=== PATIENT | male | born 1990 | race Caucasian/White ===

== ENCOUNTER 2021-12-14 08:34 | Emergency (ER) | payer BC, SELFPAY ==
[2021-12-14 08:43] VITALS: BP 141/95; PULSE 62; RESP 16; TEMP 35.8; O2SAT 98; BMI 28.1
--- NOTE | 2021-12-14 09:01 | ED_ITS ---
HPI - Skin/Abscess/Foreign Bdy General Time Seen by Provider: 08:57 Date Seen: 12/14/21 Chief complaint: Skin/Abscess/Foreign Body Stated complaint: Possible infection on Lt ankle Time Seen by Provider: 12/14/21 08:44 Source: patient, RN notes reviewed and old records reviewed Mode of arrival: ambulatory Limitations: no limitations History of Present Illness HPI narrative: Gary is a very pleasant 31-year-old male with history of psoriasis on immunosuppression, anxiety, who comes to the emergency room with concerns regarding an infection on his ankle. Gary notes that he had been camping and got multiple mosquito bites. He states that unfortunately he has been itching the bites on both ankles as well as his arms. Does admit that he is a ?pear picker?. Notes that when they do itch the intensity is pretty strong. He also notes that his left ankle is achy when he walks on it. He has not had fever but states this morning he is somewhat nauseated. He did have 2 loose stools earlier today. He denies any vomiting, injury. He does note that when he had the mosquito bites and he had scratch them he did swim in the [employer]. He has no history of MRSA. Gary is worried as he had an 8-year-old nephew of sepsis. He did not want to let this get to the septic point. MD complaint: insect bite/sting Onset (ago): day(s) Tetanus up to date: yes (States within the last 6 years.) Associated symptoms: nausea Treatments prior to arrival: none Related Data Home Medications Medication Instructions Recorded Confirmed lorazepam 2 mg tablet 2 mg PO Q12H 12/14/21 12/14/21 propranolol 20 mg tablet 20 mg BID 12/14/21 risankizumab-rzaa IV 12/14/21 venlafaxine 37.5 mg 75 mg PO DAILY 12/14/21 12/14/21 capsule,extended release 24 hr venlafaxine 75 mg capsule,extended mg PO 12/14/21 release 24 hr Allergies Allergy/AdvReac Type Severity Reaction Status Date / Time No Known Drug Allergies Allergy Verified 12/14/21 09:10 Review of Systems Const: Reports: fatigue; Denies: fever or chills Eyes: Denies: change in vision ENMT: Denies: throat pain or difficulty swallowing Cardio: Denies: chest pain or shortness of breath with exertion Resp: Denies: shortness of breath or cough GI: Denies: difficulty swallowing Integ/Breast: Reports: itching and sores Neuro: Denies: headache Psych: Reports: anxiety (Treated with lorazepam. Patient did take meds this a.m.) Endo: Reports: fatigue Sha/Lymph: Denies: easy bruising [facility] Medical History (Updated 11/25/21 @ 09:52 by Deepa Santoro) Abdominal pain Acute gastritis Acute viral pharyngitis Flank pain Lump on face Subcutaneous nodule Exam Narrative: Exam Narrative: Past medical history: Reviewed Social history: Patient does drink alcohol 2 to 3 times a week. Does not feel that he has any withdrawal symptoms or that it is a problem. Smokes cigarettes 1 pack daily-advised to quit Const: Vital Signs, click to edit/add: Vital Signs - 24 hr 12/14/21 08:43 Temperature 96.5 F L Pulse Rate [Pulse Oximeter] 62 Respiratory Rate 16 Blood Pressure [Le ft Upper Arm] 141/95 H Pulse Oximetry 98 Oxygen Delivery Me thod Room Air Documenting provider has reviewed patient's vital signs: yes Common normals: no apparent distress, average body habitus, oriented x3, no limitations, healthy appearing, alert and well nourished General appearance: cooperative, comfortable and well kempt HENMT: Common normals: normocephalic, head/scalp atraumatic and external ears normal Head and scalp: normocephalic and atraumatic Face and sinus: normal facial exam External ear: external ears normal Mouth: oral and palatal mucosa normal and tongue normal Throat: posterior oropharynx normal Eye: Common normals: PERRL General eye: normal appearance of both eyes Pupil: PERRL Neck & C-Spine: Common normals: full ROM, no lymphadenopathy and supple Resp: Common normals: normal respiratory effort and clear to auscultation bilaterally Effort & inspection: able to speak in complete sentences Auscultation: clear to auscultation bilaterally Cardio: Common normals: regular rate and regular rhythm Rate: regular rate Rhythm: regular rhythm GI: Common normals: soft to palpation and non-tender Palpation: soft Extremity: Other: Bilateral ankle scabbing. On the left scabbing over lateral malleolus also shows some weeping. Neuro: Common normals: oriented x3 Sensorium/orientation: alert Speech: speech normal Gait (neuro): normal gait Psych: Common normals: mental status grossly normal, thought process normal, cooperative, affect normal, speech normal and activity/motor behavior normal Appearance: well kempt Speech: normal speech Thought process: normal thought process Skin: Narrative: Areas of scabbing measuring 3-6 mm noted on the extensor and dorsal areas of forearms right greater than left. On the ankles areas of scabbing noted on the right ankle without surrounding edema. Left ankle, lateral malleolus, however shows area of weeping with wound measuring approximately 2 x 1 cm. There is an area of erythema around this that is tender to the touch. No significant edema. Area of erythema limited to periphery of the wound at this time. Not excessively warm to the touch. Wound culture accomplished Course Course Hospital Course: At this time, differential diagnosis does include cellulitis, scabbing/insect bite reaction. Patient assures me that he did not have any psoriatic plaques in this area and that indeed there was a mosquito bite which she scratched. He has no history of MRSA and he states his tetanus is up-to-date within the last 6 years. At this time recommend antibiotic treatment and will also obtain culture. Vital Signs Vital signs: Initial Vital Signs Temperature 96.5 F L 12/14/21 08:43 Temperature Source Temporal Artery Scan 12/14/21 08:43 Pulse Rate 62 12/14/21 08:43 Pulse Rhythm 12/14/21 08:43 Respiratory Rate 16 12/14/21 08:43 Blood Pressure 141/95 H 12/14/21 08:43 Blood Pressure Mean 110 12/14/21 08:43 Pulse Oximetry 98 12/14/21 08:43 Oxygen Delivery Method 12/14/21 08:43 Vital Signs Temperature 96.5 F L 12/14/21 08:43 Pulse Rate 62 12/14/21 08:43 Respiratory Rate 16 12/14/21 08:43 Blood Pressure 141/95 H 12/14/21 08:43 Pulse Oximetry 98 12/14/21 08:43 Oxygen Delivery Method 12/14/21 08:43 Temperature 96.5 F L 12/14/21 08:43 Pulse Rate 62 12/14/21 08:43 Respiratory Rate 16 12/14/21 08:43 Blood Pressure 141/95 H 12/14/21 08:43 Pulse Oximetry 98 12/14/21 08:43 Oxygen Delivery Method 12/14/21 08:43 MDM - Skin/Abscess/Foreign Bdy MDM Narrative Medical decision making narrative: 1. Early cellulitis-patient noted to have scabbing with some weeping on left lateral ankle that is somewhat different from the other scabbing on his ankles in arms. No fever at this time. He is not tachycardic but does take a beta- mauricio. At this time recommend treatment with Keflex. Will start with a 1000 mg and then patient may convert to 500 mg p.o. t.i.d. for 7 days. He is requesting Inst[facility] Meds. First dose will be given in the ED. 2. Nausea-patient did have 2 stools but they were regular. No alcohol use last night. He did have COVID a few months ago and does not have sore throat runny nose at this time. Continue to monitor. I do not feel that the symptoms represent sepsis. I would be more concerned about COVID but again, patient did have COVID a few months ago. He has worsening symptoms he will need to be tested. 2. Disposition-patient will be discharged home. He may shower but I would advise against soaking his wound this time. He is aware that he may not have concern will improvement in the 1st 36 hours but he should not have worsening symptoms. He should return for fever, vomiting, worsening symptoms and as needed. Medical Records Attestation: I reviewed the patient's medical records. Discharge Plan Discharge Follow Up/Referrals: Provider,Not a Local [Primary Care Provider] -
[2021-12-14] MEDS: cephALEXin 500 MG CAPSULE 1000 MG PO (09:20)
== END 2021-12-14 09:35 | disposition home or self-care (01) ==
PROVIDERS: Emergency Provider Family Medicine
DX: L03.116 Cellulitis of left lower limb (principal); R11.0 Nausea
CPT/HCPCS: 87070; 99283; 99284; A9270

== ENCOUNTER 2022-01-01 13:06 | Emergency (ER) | payer BC, SELFPAY ==
[2022-01-01 13:25] VITALS: BP 138/85; PULSE 63; RESP 18; TEMP 36.5; O2SAT 97; BMI 28.2
--- NOTE | 2022-01-01 13:35 | ED.GENADULT ---
HPI - General Adult General Chief complaint: Unspecified Complaint, Adult Stated complaint: Bumps along forearms/sides Time Seen by Provider: 01/01/22 13:32 Source: patient Mode of arrival: ambulatory Limitations: no limitations History of Present Illness HPI narrative: 31-year-old male coming in today concerned about a new onset rash that he noticed this morning. They are raised firm lesions 1 on each arm, 1 on his flank, 1 on his leg that are itchy. He states that he stayed in a new house yesterday, his friend's house, and their child also woke up with similar lesions. He denies any systemic symptoms or recent travel. Lesions are very pruritic. Related Data Home Medications Medication Instructions Recorded Confirmed lorazepam 2 mg tablet 2 mg PO Q12H 12/14/21 12/14/21 propranolol 20 mg tablet 20 mg BID 12/14/21 risankizumab-rzaa IV 12/14/21 venlafaxine 37.5 mg 75 mg PO DAILY 12/14/21 12/14/21 capsule,extended release 24 hr venlafaxine 75 mg capsule,extended mg PO 12/14/21 release 24 hr Previous Rx's Medication Instructions Recorded risankizumab-rzaa 150 mg/mL 150 mg subcut Q12W #1 mL 12/24/21 subcutaneous syringe (Skyrizi) Allergies Allergy/AdvReac Type Severity Reaction Status Date / Time No Known Drug Allergies Allergy Verified 12/14/21 09:10 Review of Systems Status of ROS: Reports: 10 or more systems reviewed and unremarkable except as noted in History and below [facility] Medical History Abdominal pain Acute gastritis Acute viral pharyngitis Flank pain Lump on face Subcutaneous nodule Social History Smoking Status: Current every day smoker What tobacco products do you use: cigarettes Do you use any of these nicotine containing products: None Second hand tobacco smoke exposure: No How often do you have a drink containing alcohol: 2-3 times a week How many standard drinks containing alcohol do you have on a typical day: 3 or 4 How often do you have six or more drinks on one occasion: Weekly AUDIT-C Alcohol total score: 7 Non-prescribed substance use: denies use service: No Exam Narrative: Exam Narrative: Well-nourished well-developed patient in no acute distress although is a bit anxious. Alert and oriented. Answers questions appropriately. Mood and affect are appropriate. Thoughts are goal oriented and rational. No tangential or magical thinking noted. Patient speaks in full sentences without needing to catch his breath. HEENT: Normocephalic atraumatic. Pupils are equally round reactive to light. Extraocular muscles are intact. Conjunctivae are moist without any icterus noted. Extremities: Bilateral lower extremities are without edema. Normal DP and PT pulses. Several tattoos. Skin: Well perfused, dry and intact. Patient has elevated, firm macules-1 on each arm, 1 is flank and 1 on his leg. Appear very consistent with insect bites. Const: Vital Signs, click to edit/add: Vital Signs - 24 hr 01/01/22 13:25 Temperature 97.7 F Pulse Rate [Right Pulse Oximeter] 63 Respiratory Rate 18 Blood Pressure [Ri ght Upper Arm] 138/85 Pulse Oximetry 97 Oxygen Delivery Me thod Room Air Course Vital Signs Vital signs: Initial Vital Signs Temperature 97.7 F 01/01/22 13:25 Temperature Source Temporal Artery Scan 01/01/22 13:25 Pulse Rate 63 01/01/22 13:25 Respiratory Rate 18 01/01/22 13:25 Blood Pressure 138/85 01/01/22 13:25 Blood Pressure Mean 102 01/01/22 13:25 Pulse Oximetry 97 01/01/22 13:25 Oxygen Delivery Method 01/01/22 13:25 Vital Signs Temperature 97.7 F 01/01/22 13:25 Pulse Rate 63 01/01/22 13:25 Respiratory Rate 18 01/01/22 13:25 Blood Pressure 138/85 01/01/22 13:25 Pulse Oximetry 97 01/01/22 13:25 Oxygen Delivery Method 01/01/22 13:25 Temperature 97.7 F 01/01/22 13:25 Pulse Rate 63 01/01/22 13:25 Respiratory Rate 18 01/01/22 13:25 Blood Pressure 138/85 01/01/22 13:25 Pulse Oximetry 97 01/01/22 13:25 Oxygen Delivery Method 01/01/22 13:25 Medical Decision Making MDM Narrative Medical decision making narrative: 31-year-old male with what appears to be insect bites. We discussed symptomatic treatment with Benadryl, hydrocortisone. We discussed changing his sleeping arrangements. We also discussed cleaning the environment with putting the laundry in hot water and then in the hot sizing machine and drier operator. Patient was agreeable had no other questions. Discharge Plan Discharge Clinical Impression: Insect bite Patient Disposition: Home, Self-Care Condition: Stable Additional Instructions: You can try oral Benadryl, 25 mg every 6 hours as needed. He can also try [id number] cortisone cream. These will heal in a few days. Prescriptions: No Action venlafaxine 37.5 mg capsule,extended release 24hr 75 mg PO DAILY Label Comments: TAKE 1 CAPSULE BY MOUTH DAILY WITH FOOD venlafaxine 75 mg capsule,extended release 24hr PO lorazepam 2 mg tablet 2 mg PO Q12H Label Comments: TAKE ONE-HALF TABLET BY MOUTH THREE TIMES DAILY AND 1/4 TWICE DAILY NEEDED propranolol 20 mg tablet 20 mg BID Label Comments: TAKE 2 TABLETS BY MOUTH EVERY MORNING AND 1 LATER IN DAY risankizumab-rzaa [Skyrizi] IV Label Comments: SQ every three months Skyrizi 150 mg/mL syringe 150 mg subcut Q12W Qty: 1 0RF Follow Up/Referrals: Provider,Not a Local [Primary Care Provider] - Stand Alone Forms: [facility] Info Instructions
--- NOTE | 2022-01-01 14:03 | ED.NURSE ---
Pt left ER prior to DC instructions being given.
== END 2022-01-01 14:03 | disposition home or self-care (01) ==
PROVIDERS: Emergency Provider Family Medicine
DX: S40.862A Insect bite (nonvenomous) of left upper arm, initial encounter (principal); S40.861A Insect bite (nonvenomous) of right upper arm, initial encounter; S30.861A Insect bite (nonvenomous) of abdominal wall, initial encounter; W57.XXXA Bitten or stung by nonvenomous insect and other nonvenomous arthropods, initial encounter; Y93.84 Activity, sleeping; Y92.013 Bedroom of single-family (private) house as the place of occurrence of the external cause; Y99.8 Other external cause status
CPT/HCPCS: 99282; 99283

== ENCOUNTER 2022-01-24 05:59 | Emergency (ER) | payer BC, SELFPAY ==
[2022-01-24 06:05] VITALS: BP 147/101; PULSE 90; RESP 16; TEMP 36.8; O2SAT 94; BMI 26.6
--- NOTE | 2022-01-24 06:24 | ED.SOB ---
HPI - SOB/Dyspnea General Chief Complaint: Shortness of Breath/Dyspnea Stated Complaint: Congestion, cough, fever Time Seen by Provider: 01/24/22 06:16 History of Present Illness HPI Narrative: 31-year-old man presenting to the emergency department with complaint of low sternal chest pain and coughing. Has been coughing with some head cold symptoms over the last 4-5 days. Has not measured a fever but says been burning up. If I the surprising that he does not have a fever here today, noting how hot his back was to palpation by his . Ears are cracking as well and popping. Is having some left flank area pain now. No dysuria frequency or urgency. No hematuria noted. Was seen at Urgent Care 2 days ago. This he was advised not to take ?Sudafed? as would dry him out. He has been trying guaifenesin. Was initiated on doxycycline 2 days ago. Sounds as though he had x-rays done. His hurts in the same flank area. I don't know what that's about?. Was told to follow up in 2 days of was improved. He says he feels worse than when he had COVID in May approximately this year. He has been vaccinated twice. Related Data Home Medications Medication Instructions Recorded Confirmed lorazepam 2 mg tablet 2 mg PO Q12H 12/14/21 01/24/22 propranolol 20 mg tablet 20 mg PO BID 12/14/21 01/24/22 venlafaxine 75 mg capsule,extended 75 mg PO DAILY 12/14/21 01/24/22 release 24 hr Robitussin with tylenol 01/24/22 cholecalciferol (vitamin D3) 50 01/24/22 mcg (2,000 unit) capsule (Vitamin D3) ibuprofen 600 mg 01/24/22 Previous Rx's Medication Instructions Recorded risankizumab-rzaa 150 mg/mL 150 mg subcut Q12W #1 mL 12/24/21 subcutaneous syringe (Skyrizi) Allergies Allergy/AdvReac Type Severity Reaction Status Date / Time No Known Drug Allergies Allergy Verified 01/24/22 06:08 [facility] Medical History Abdominal pain Acute gastritis Acute viral pharyngitis Flank pain Lump on face Subcutaneous nodule Social History Smoking Status: Current every day smoker What tobacco products do you use: cigarettes Do you use any of these nicotine containing products: None Second hand tobacco smoke exposure: No How often do you have a drink containing alcohol: monthly or less AUDIT-C Alcohol total score: 1 Non-prescribed substance use: denies use service: No Exam Narrative: Exam Narrative: Sounds rather congested. Occasional cough. NAD. No facial swelling or erythema. He is tender over the maxillary sinus area. TMs bilaterally are little scarred. right with some fluid. Neither inflamed. Oropharynx is sticky Back is quite warm noting lying in this plastic covered mattress of a bed. Lungs with good air movement but some wheeze on forced exhalation. Abdomen is soft. Mild discomfort to palpation in the left mid axillary rib margin area Const: Vital Signs, click to edit/add: Vital Signs - 24 hr 01/24/22 06:05 01/24/22 08:00 Temperature 98.2 F 97.8 F Pulse Rate [Left P ulse Oximeter] 90 73 Respiratory Rate 16 20 Blood Pressure [Ri ght Upper Arm] 147/101 H 129/90 H Pulse Oximetry 94 93 Oxygen Delivery Me thod Room Air Room Air Documenting provider has reviewed patient's vital signs: yes Course Course Hospital Course: Feels better after DuoNeb. Still wheezy he says as he demonstrates. Reevaluation(s) Reevaluation #1: Upon further reflection does not feel like things changed much at all with his nebulization. Vital Signs Vital signs: Initial Vital Signs Temperature 98.2 F 01/24/22 06:05 Temperature Source Temporal Artery Scan 01/24/22 06:05 Pulse Rate 90 01/24/22 06:05 Respiratory Rate 16 01/24/22 06:05 Respiratory Depth Normal 01/24/22 06:05 Respiratory Pattern 01/24/22 06:05 Blood Pressure 147/101 H 01/24/22 06:05 Blood Pressure Mean 116 01/24/22 06:05 Blood Pressure Position Supine 01/24/22 06:05 Pulse Oximetry 94 01/24/22 06:05 Oxygen Delivery Method 01/24/22 06:05 Vital Signs Temperature 98.2 F 01/24/22 06:05 Pulse Rate 90 01/24/22 06:05 Respiratory Rate 16 01/24/22 06:05 Blood Pressure 147/101 H 01/24/22 06:05 Pulse Oximetry 94 01/24/22 06:05 Oxygen Delivery Method 01/24/22 06:05 Temperature 97.8 F 01/24/22 08:00 Pulse Rate 73 01/24/22 08:00 Respiratory Rate 20 01/24/22 08:00 Blood Pressure 129/90 H 01/24/22 08:00 Pulse Oximetry 93 01/24/22 08:00 Oxygen Delivery Method 01/24/22 08:00 MDM - SOB/Dyspnea MDM Narrative Medical decision making narrative: Complicated by immune modulating medication. If COVID is positive Gary would consider taking Paxlovid. Will need creatinine. I had ordered the point of care creatinine but COVID was negative. Creatinine canceled Chest x-ray WNL. Reviewed by me. Medical Records Attestation: I reviewed the patient's medical records. Lab Data Attestation: I reviewed the patient's lab results. Labs: Lab Results 01/24/22 Range/Units 06:31 SARS-CoV-2 (PCR) Negative SARS-CoV-2 (Negative) Discharge Plan Discharge Clinical Impression: URI (upper respiratory infection), Bronchitis Patient Disposition: Home, Self-Care Condition: Stable Additional Instructions: Focus on hydration ? try to drink 2 ? 3 liters of water daily.? Consider sleeping under the mist of an ultrasonic/cool mist humidifier. 12 hour pseudoephedrine for decongestion/drying. Consider Delsym for cough otherwise. Ibuprofen or naproxen. Return for persistent increasing shortness of breath/chest pain, associated fever. Contrary to [facility] prescription, take 60 mg of prednisone the 1st day Prescriptions: No Action venlafaxine 75 mg capsule,extended release 24hr 75 mg PO DAILY lorazepam 2 mg tablet 2 mg PO Q12H Label Comments: TAKE ONE-HALF TABLET BY MOUTH THREE TIMES DAILY AND 1/4 TWICE DAILY NEEDED propranolol 20 mg tablet 20 mg PO BID Label Comments: TAKE 2 TABLETS BY MOUTH EVERY MORNING AND 1 LATER IN DAY cholecalciferol (vitamin D3) [Vitamin D3] 50 mcg (2,000 unit) capsule Label Comments: TAKE 1 CAPSULE BY MOUTH DAILY Robitussin with tylenol ibuprofen 600 mg Skyrizi 150 mg/mL syringe 150 mg subcut Q12W Qty: 1 0RF Follow Up/Referrals: Provider,Not a Local [Primary Care Provider] - Stand Alone Forms: [facility] Info Instructions
--- NOTE | 2022-01-24 06:30 | CRLHL7_ITS ---
For Patients: As a result of the Century Cures Act, medical imaging exams and procedure reports are released immediately into your electronic medical record. You may view this report before your referring provider. If you have questions, please contact your health care provider. INDICATION: COUGHCOMPARE TO CXR 01.22.2022 07.16.2021 HISTORY: Cough. COMPARISON: 01/22/2022. 07/16/2021. TECHNIQUE: Chest one-view portable semi upright. FINDINGS: Heart size and pulmonary vasculature are normal. The lungs are clear. There is no pneumothorax. Central airway is normal. Osseous structures are intact. IMPRESSION: Lungs are clear. Dictated by Luis Angel Armenta MD @ 01/24/2022 7:19:02 AM Dictated by: Luis Angel Armenta MD @ 01/24/2022 07:19:11 (Electronically Signed)
[2022-01-24] MEDS: IPRAT-ALBUT 0.5-2.5 MG/3 ML NEB 1 NEB IH (06:52)
[2022-01-24 07:37] LABS: SARS PCR* Negative SARS-CoV-2 (Negative)
[2022-01-24 08:00] VITALS: BP 129/90; PULSE 73; RESP 20; TEMP 36.6; O2SAT 93
[2022-01-24] MEDS: IBUPROFEN 400 MG TABLET 800 MG PO (08:12)
[2022-01-24] MEDS: PSEUDOEPHEDRINE HCL 30 MG TABLET 60 MG PO (08:12)
== END 2022-01-24 08:36 | disposition home or self-care (01) ==
PROVIDERS: Emergency Provider Family Medicine
DX: J06.9 Acute upper respiratory infection, unspecified (principal); J40 Bronchitis, not specified as acute or chronic
CPT/HCPCS: 71045; 87635; 94640; 99284; 99285; A9270

== ENCOUNTER 2022-06-09 11:48 | Outpatient (CLI) | payer BC, SELFPAY ==
[2022-06-09 21:24] LABS: Albumin* 4.5 g/dL (3.3-5.0); Chloride* 105 mmol/L (96-114); Potassium* 4.6 mmol/L (3.6-5.1); Sodium* 143 mmol/L (135-149)
[2022-06-09 21:27] LABS: Alanine Aminotransferase* 58 U/L (4-50); Alkaline Phosphatase* 91 U/L (40-150); Aspartate Amino Transferase* 34 U/L (12-35); Bilirubin Total* 1.1 mg/dL (0.1-1.5); Blood Urea Nitrogen* 15 mg/dL (5-24); Carbon Dioxide* 34 mmol/L (20-32); Creatinine* 0.9 mg/dL (0.5-1.5); Estimated Glomerular Filt Rate 116 ml/min; Glucose* 109 mg/dL (60-115); Total Protein* 7.5 g/dL (6.0-8.3)
[2022-06-09 21:28] LABS: Calcium* 9.9 mg/dL (8.4-10.6)
== END 2022-06-09 11:49 | disposition home or self-care (01) ==
PROVIDERS: PCP Internal Medicine; Visit Provider Dermatology
DX: L40.9 Psoriasis, unspecified (principal)
CPT/HCPCS: 80053; 86480

== ENCOUNTER 2022-06-10 13:25 | Outpatient (CLI) | payer BC, SELFPAY ==
[2022-06-10 15:43] LABS: Albumin* 4.6 g/dL (3.3-5.0); Chloride* 106 mmol/L (96-114); Sodium* 142 mmol/L (135-149)
[2022-06-10 15:44] LABS: Potassium* 4.2 mmol/L (3.6-5.1)
[2022-06-10 15:46] LABS: Alkaline Phosphatase* 81 U/L (40-150); Aspartate Amino Transferase* 42 U/L (12-35); Bilirubin Total* 1.5 mg/dL (0.1-1.5); Blood Urea Nitrogen* 13 mg/dL (5-24); Carbon Dioxide* 29 mmol/L (20-32); Creatinine* 0.9 mg/dL (0.5-1.5); Estimated Glomerular Filt Rate 116 ml/min; Total Protein* 7.4 g/dL (6.0-8.3)
[2022-06-10 15:47] LABS: Alanine Aminotransferase* 62 U/L (4-50); Calcium* 9.5 mg/dL (8.4-10.6); Glucose* 127 mg/dL (60-115)
[2022-06-10 16:03] LABS: Vitamin D 25 Hydroxy* 26 ng/mL (30-80)
[2022-06-12 22:56] LABS: Testosterone, Adult Male 442 ng/dL (300-1080)
== END 2022-06-10 13:26 | disposition home or self-care (01) ==
PROVIDERS: PCP Internal Medicine; Visit Provider Internal Medicine
DX: F32.A Depression, unspecified (principal)
CPT/HCPCS: 80053; 82306; 84403; 84443

== ENCOUNTER 2022-06-22 15:48 | Emergency (ER) | payer BC, SELFPAY | END 2022-06-22 16:27 | disposition left against medical advice (07) | LOC: ED 16:19 | PROVIDERS: PCP Internal Medicine | DX: Z53.21 Procedure and treatment not carried out due to patient leaving prior to being seen by health care provider (principal) ==

== ENCOUNTER 2022-06-22 17:03 | Outpatient (CLI) | payer BC, SELFPAY ==
[2022-06-23 09:15] LABS: Albumin* 4.6 g/dL (3.3-5.0)
[2022-06-23 09:18] LABS: Bilirubin Direct* 0.2 mg/dL (0.0-0.5); Bilirubin Total* 0.8 mg/dL (0.1-1.5); Total Protein* 7.5 g/dL (6.0-8.3)
[2022-06-23 09:19] LABS: Alanine Aminotransferase* 67 U/L (4-50); Alkaline Phosphatase* 94 U/L (40-150); Aspartate Amino Transferase* 40 U/L (12-35)
[2022-06-23 09:22] LABS: C Reactive Protein* 0.6 mg/dL (0.5-1.0)
== END 2022-06-22 17:04 | disposition home or self-care (01) ==
PROVIDERS: PCP Internal Medicine; Visit Provider Nurse Practitioner Family
DX: R10.9 Unspecified abdominal pain (principal)
CPT/HCPCS: 80076; 86140

== ENCOUNTER 2022-07-05 09:32 | Emergency (ER) | payer BC, SELFPAY ==
[2022-07-05 09:42] VITALS: BP 146/93; PULSE 52; RESP 16; TEMP 36.7; O2SAT 99; BMI 27.4
--- NOTE | 2022-07-05 10:12 | ED_ITS ---
HPI - General Adult General Chief complaint: Abdominal Pain Stated complaint: stomach pain, nausea, diarrhea Time Seen by Provider: 07/05/22 09:55 History of Present Illness HPI narrative: This 31-year-old male comes in reporting intermittent abdominal pains over the past 2-3 weeks. He states that his girlfriend also had similar symptoms but have since resolved. He does report a history of irritable bowel syndrome. He states that he is not having any pain currently but sometimes gets severe cramping in his abdomen. He was seen a couple weeks ago and urgent care and labs returned essentially normal at that time. Since then he has developed pain with passing urine. He does not report any fevers. Related Data Home Medications Medication Instructions Recorded Confirmed lorazepam 2 mg tablet 2 mg PO Q12H 12/14/21 07/05/22 propranolol 20 mg tablet 20 mg PO BID 12/14/21 07/05/22 cholecalciferol (vitamin D3) 50 2,000 unit PO DAILY 01/24/22 07/05/22 mcg (2,000 unit) capsule (Vitamin D3) duloxetine 20 mg capsule,delayed 20 mg PO DAILY 06/10/22 07/05/22 release Previous Rx's Medication Instructions Recorded risankizumab-rzaa 150 mg/mL 150 mg subcut Q12W #1 mL 06/09/22 subcutaneous syringe (Skyrizi) ondansetron 4 mg disintegrating 4 - 8 mg PO Q8H PRN nausea and 06/22/22 tablet vomiting #30 tabs Allergies Allergy/AdvReac Type Severity Reaction Status Date / Time No Known Drug Allergies Allergy Verified 07/05/22 09:49 Review of Systems Status of ROS: Reports: 10 or more systems reviewed and unremarkable except as noted in History and below Narrative: Constitutional: No fevers, no weight gain or loss. Eyes: No discharge. No vision changes. HENT: No congestion, no sore throat, no ear pain. Cardiovascular: No chest pain, no palpitations. Respiratory: No shortness of breath, no wheezes, no cough. Gastrointestinal: Crampy abdominal pain. Diarrhea. Genitourinary: Pain when passing urine. No hematuria. Musculoskeletal: Normal range of motion. Skin: No rashes, no pruritis. Neurological: No dizziness, weakness, sensory change, speech change. Endo/Heme/Allergies: No bruising or bleeding. No polydipsia. Pysch: no suicidality, no anxiety, no insomnia. All other systems reviewed and are negative. [facility] Medical History (Updated 07/05/22 @ 11:23 by Bryce Rothman MD) Abdominal pain Abdominal pain Acute gastritis Acute viral pharyngitis Depression Flank pain Lump on face Sinus infection Subcutaneous nodule Social History Smoking Status: Current every day smoker What tobacco products do you use: cigarettes Do you use any of these nicotine containing products: None Second hand tobacco smoke exposure: No How often do you have a drink containing alcohol: monthly or less AUDIT-C Alcohol total score: 1 Non-prescribed substance use: denies use Little interest or pleasure in doing things: more than half the days Feeling down, depressed, or hopeless: more than half the days service: No Exam Narrative: Exam Narrative: Constitutional: Well-developed, well-nourished, no acute distress. HEENT: Normocephalic, atraumatic. Neck: Normal range of motion. Nontender. Supple. Heart: Regular. No murmurs. Normal rate. Intact distal pulses. Lungs: Clear to auscultation. No chest discomfort. No wheezes, rhonchi, or rales. Abdomen: Normal bowel sounds. Nontender. No rebound tenderness. Genitalia: Deferred. Back: No midline tenderness. Normal range of motion. Extremities: Normal range of motion. No injury. Skin: Intact. No rash. Warm. No erythema or pallor. Neurologic: No altered sensation. No weakness. Alert and oriented. Psychiatric: No suicidality. No anxiety or depression. No insomnia. Nursing notes and vitals signs are reviewed. Const: Vital Signs, click to edit/add: Vital Signs - 24 hr 07/05/22 09:42 Temperature 98.1 F Pulse Rate [Right Pulse Oximeter] 52 L Respiratory Rate 16 Blood Pressure [Ri ght Upper Arm] 146/93 H Pulse Oximetry 99 Oxygen Delivery Me thod Room Air Course Vital Signs Vital signs: Initial Vital Signs Temperature 98.1 F 07/05/22 09:42 Temperature Source Temporal Artery Scan 07/05/22 09:42 Pulse Rate 52 L 07/05/22 09:42 Respiratory Rate 16 07/05/22 09:42 Blood Pressure 146/93 H 07/05/22 09:42 Blood Pressure Mean 110 07/05/22 09:42 Blood Pressure Position Sitting 07/05/22 09:42 Pulse Oximetry 99 07/05/22 09:42 Oxygen Delivery Method 07/05/22 09:42 Vital Signs Temperature 98.1 F 07/05/22 09:42 Pulse Rate 52 L 07/05/22 09:42 Respiratory Rate 16 07/05/22 09:42 Blood Pressure 146/93 H 07/05/22 09:42 Pulse Oximetry 99 07/05/22 09:42 Oxygen Delivery Method 07/05/22 09:42 Temperature 98.1 F 07/05/22 09:42 Pulse Rate 52 L 07/05/22 09:42 Respiratory Rate 16 07/05/22 09:42 Blood Pressure 146/93 H 07/05/22 09:42 Pulse Oximetry 99 07/05/22 09:42 Oxygen Delivery Method 07/05/22 09:42 Medical Decision Making MDM Narrative Medical decision making narrative: This patient comes in with crampy abdominal pain and occasional diarrhea and vomiting. He states that these symptoms have been going for a couple weeks. He also reports some pain when voiding urine. He was seen in urgent care a couple days ago and those records are reviewed. He did provide urine today which returns without evidence of any hematuria or infection. He has normal vital signs. He does have a history of irritable bowel syndrome. He is also taking Skyrizi for psoriasis. The patient is reassured with these findings. I did discuss further lab and imaging options which the patient declined in a process of shared decision making. He states that he has Zofran that he can use at home if needed. I also encouraged using Imodium for diarrhea symptoms. Lab Data Labs: Lab Results 07/05/22 Range/Units 10:18 Urine Color Yellow (Yellow) Urine Appearance Clear (Clear) Urine pH 6.0 (5.0-8.5) Ur Specific [place] 1.020 (1.000-1.030) Urine Protein Negative (Negative) Urine Glucose (UA) Negative (Negative) Urine Ketones Negative (Negative) Urine Blood Negative (Negative) Urine Nitrite Negative (Negative) Urine Bilirubin Negative (Negative) Urine Urobilinogen 0.2 (0.2-1.0) Ur Leukocyte Esterase Negative (Negative) Urine RBC 0-2 (0-2) Urine WBC 0-2 (0-5) Ur Squamous Epith Cells Few (None-Few) Urine Bacteria None (None) Discharge Plan Discharge Clinical Impression: Gastroenteritis Patient Disposition: Home, Self-Care Condition: Stable Additional Instructions: Use Zofran as needed and directed for nausea. It is recommended to use Imodium to manage diarrhea symptoms. Increase diet as tolerated. Follow up with MD or return if worsening. Prescriptions: No Action Skyrizi 150 mg/mL syringe 150 mg subcut Q12W Qty: 1 2RF duloxetine 20 mg capsule,delayed release(DR/EC) 20 mg PO DAILY Label Comments: has not started yet ondansetron 4 mg tablet,disintegrating 4 - 8 mg PO Q8H PRN (Reason: nausea and vomiting) Qty: 30 0RF Hold Instructions: getting heart palpations lorazepam 2 mg tablet 2 mg PO Q12H Label Comments: TAKE ONE-HALF TABLET BY MOUTH THREE TIMES DAILY AND 1/4 TWICE DAILY NEEDED propranolol 20 mg tablet 20 mg PO BID Label Comments: TAKE 2 TABLETS BY MOUTH EVERY MORNING AND 1 LATER IN DAY cholecalciferol (vitamin D3) [Vitamin D3] 50 mcg (2,000 unit) capsule 2,000 unit PO DAILY Label Comments: TAKE 1 CAPSULE BY MOUTH DAILY Follow Up/Referrals: Randy Killian MD [Primary Care Provider] - Stand Alone Forms: [employer] Info Instructions
[2022-07-05 10:25] LABS: Appearance Urine Clear (Clear); Bilirubin Urine Negative (Negative); Blood Urine Negative (Negative); Color Urine Yellow (Yellow); Glucose Urine Negative (Negative); Ketones Urine Negative (Negative); Leukocyte Esterase Urine Negative (Negative); Nitrite Urine Negative (Negative); Protein Urine Negative (Negative); Urobilinogen Urine 0.2 (0.2-1.0)
[2022-07-05 10:33] LABS: RBC Urine 0-2 (0-2); WBC Urine 0-2 (0-5)
[2022-07-05 10:34] LABS: Squamous Epithelial Cell Urine Few (None-Few)
== END 2022-07-05 11:34 | disposition home or self-care (01) ==
PROVIDERS: Emergency Provider Emergency Medicine Emergency Medical Services; PCP Internal Medicine
DX: K52.9 Noninfective gastroenteritis and colitis, unspecified (principal)
CPT/HCPCS: 81001; 99283; 99284

== ENCOUNTER 2023-03-01 08:50 | Emergency (ER) | payer BC, SELFPAY ==
[2023-03-01 08:57] VITALS: BP 135/96; PULSE 64; RESP 20; TEMP 36.1; O2SAT 97; BMI 27.3
--- NOTE | 2023-03-01 09:42 | ED.CHESTPAIN ---
HPI - Chest Pain General Chief Complaint: Chest Pain Stated Complaint: chest pain Time Seen by Provider: 03/01/23 09:29 History of Present Illness HPI narrative: This 32-year-old male comes in reporting pain in the left upper anterior chest that began late last evening. He noticed this when he took a deep breath or with coughing. He does not have any nausea, vomiting, lightheadedness, shortness of breath, or diaphoresis. He does not have any exercise intolerance recently. The pain is clearly reproducible when coughing or raising his left arm up above his head. He states that he was doing a fair amount of new activity working on some kind of project where he had his arms up above his head often over the past couple days. This maneuver does reproduce the pain along with taking a deep breath or coughing. Related Data Home Medications Medication Instructions Recorded Confirmed lorazepam 2 mg tablet 2 mg PO Q12H 12/14/21 03/01/23 propranolol 20 mg tablet 20 mg PO BID 12/14/21 03/01/23 cholecalciferol (vitamin D3) 50 2,000 unit PO DAILY 01/24/22 01/13/23 mcg (2,000 unit) capsule (Vitamin D3) venlafaxine 75 mg capsule,extended 75 mg PO DAILY 01/13/23 03/01/23 release 24 hr Previous Rx's Medication Instructions Recorded escitalopram oxalate 10 mg tablet 10 mg PO QDAY Anxiety #90 tabs 01/13/23 (Lexapro) risankizumab-rzaa 150 mg/mL 150 mg subcut Q12W #1 mL 02/25/23 subcutaneous syringe (Skyrizi) Allergies Allergy/AdvReac Type Severity Reaction Status Date / Time No Known Drug Allergies Allergy Verified 03/01/23 09:02 Review of Systems Status of ROS Reports: 10 or more systems reviewed and unremarkable except as noted in History and below Narrative Constitutional: No fevers, no weight gain or loss. Eyes: No discharge. No vision changes. HENT: No congestion, no sore throat, no ear pain. Cardiovascular: No palpitations. Respiratory: No shortness of breath, no wheezes, no cough. Gastrointestinal: No abdominal pain, no vomiting, no diarrhea. Genitourinary: No dysuria, no hematuria. Musculoskeletal: Normal range of motion. Skin: No rashes, no pruritis. Neurological: No dizziness, weakness, sensory change, speech change. Endo/Heme/Allergies: No bruising or bleeding. No polydipsia. Pysch: no suicidality, no anxiety, no insomnia. All other systems reviewed and are negative. [facility] Medical History (Updated 03/01/23 @ 10:06 by Bryce Rothman MD) Sinus infection ?J32.9 - Chronic sinusitis, unspecified (ICD-10) Abdominal pain ?R10.9 - Unspecified abdominal pain (ICD-10) Depression ?F32.A - Depression, unspecified (ICD-10) Subcutaneous nodule ?R22.9 - Localized swelling, mass and lump, unspecified (ICD-10) Lump on face ?R22.0 - Localized swelling, mass and lump, head (ICD-10) Flank pain ?R10.9 - Unspecified abdominal pain (ICD-10) Acute viral pharyngitis ?J02.9 - Acute pharyngitis, unspecified (ICD-10) Acute gastritis ?K29.00 - Acute gastritis without bleeding (ICD-10) Abdominal pain ?R10.9 - Unspecified abdominal pain (ICD-10) Social History Smoking Status: Current every day smoker What tobacco products do you use: cigarettes Smoking packs per day: 1 Smoking cigarettes per day: 20.0 Do you use any of these nicotine containing products: None Second hand tobacco smoke exposure: No How often do you have a drink containing alcohol: monthly or less AUDIT-C Alcohol total score: 1 Non-prescribed substance use: denies use Little interest or pleasure in doing things: more than half the days Feeling down, depressed, or hopeless: more than half the days service: No Exam Narrative Exam Narrative: Constitutional: Well-developed, well-nourished, no acute distress. HEENT: Normocephalic, atraumatic. Neck: Normal range of motion. Nontender. Supple. Heart: Regular. No murmurs. Normal rate. Intact distal pulses. Lungs: Clear to auscultation. No wheezes, rhonchi, or rales. Abdomen: Normal bowel sounds. Nontender. No rebound tenderness. Genitalia: Deferred. Back: No midline tenderness. Normal range of motion. Extremities: Normal range of motion. No injury. Skin: Intact. No rash. Warm. No erythema or pallor. Neurologic: No altered sensation. No weakness. Alert and oriented. Psychiatric: No suicidality. No anxiety or depression. No insomnia. Nursing notes and vitals signs are reviewed. Const Vital Signs, click to edit/add: Vital Signs - 24 hr 03/01/23 08:57 03/01/23 09:49 Temperature 97 F L Pulse Rate [Bilateral Pulse Oximeter] 64 Respiratory Rate 20 Blood Pressure [Right Upper Arm] 135/96 H 133/100 H Pulse Oximetry 97 98 Oxygen Delivery Method Room Air Room Air Course Vital Signs Vital signs: Initial Vital Signs Temperature 97 F L 03/01/23 08:57 Temperature Source Temporal Artery Scan 03/01/23 08:57 Pulse Rate 64 03/01/23 08:57 Pulse Rhythm Regular 03/01/23 08:57 Pulse Strength 3+ Normal 03/01/23 08:57 Respiratory Rate 20 03/01/23 08:57 Blood Pressure 135/96 H 03/01/23 08:57 Blood Pressure Mean 109 H 03/01/23 08:57 Pulse Oximetry 97 03/01/23 08:57 Oxygen Delivery Method Room Air 03/01/23 08:57 Vital Signs Temperature 97 F L 03/01/23 08:57 Pulse Rate 64 03/01/23 08:57 Respiratory Rate 20 03/01/23 08:57 Blood Pressure 135/96 H 03/01/23 08:57 Pulse Oximetry 97 03/01/23 08:57 Oxygen Delivery Method Room Air 03/01/23 08:57 Temperature 97 F L 03/01/23 08:57 Pulse Rate 64 03/01/23 08:57 Respiratory Rate 20 03/01/23 08:57 Blood Pressure 133/100 H 03/01/23 09:49 Pulse Oximetry 98 03/01/23 09:49 Oxygen Delivery Method Room Air 03/01/23 09:49 MDM - Chest Pain MDM Narrative Medical decision making narrative: This patient comes in reporting pain is left upper anterior chest is reproducible with certain movements and when taking a deep breath. He did have some recent new strenuous activity that does reproduce this pain. EKG shows normal sinus rhythm. There are no specific ST or T-wave abnormalities. This patient has good exercise tolerance. His chest pain is reproducible typical of chest wall pain. I did discuss lab and imaging options with the patient which she declined in a process of shared decision making. I did review [id number] medications that can be used for symptomatic relief. The patient did receive Tylenol 1000 mg and ibuprofen 600 mg here. ECG Data Attestation: I personally reviewed and interpreted this ECG as follows: Interpretation: Normal sinus rhythm. Rate is 68 beats per minute. There are no ST or T-wave abnormalities. Discharge Plan Discharge Clinical Impression: Acute chest wall pain Patient Disposition: Home, Self-Care Condition: Stable Additional Instructions: Use [id number] medicines as needed and directed. Increase activity as tolerated. Follow up with MD return if worsening. Prescriptions: No Action venlafaxine 75 mg capsule,extended release 24hr 75 mg PO DAILY escitalopram oxalate [Lexapro] 10 mg tablet 10 mg PO QDAY Qty: 90 0RF lorazepam 2 mg tablet 2 mg PO Q12H Patient Comments: TAKE ONE-HALF TABLET BY MOUTH THREE TIMES DAILY AND 1/4 TWICE DAILY NEEDED propranolol 20 mg tablet 20 mg PO BID Patient Comments: TAKE 2 TABLETS BY MOUTH EVERY MORNING AND 1 LATER IN DAY cholecalciferol (vitamin D3) [Vitamin D3] 50 mcg (2,000 unit) capsule 2,000 unit PO DAILY Patient Comments: TAKE 1 CAPSULE BY MOUTH DAILY Skyrizi 150 mg/mL syringe 150 mg subcut Q12W Qty: 1 1RF Follow Up/Referrals: Randy Killian MD [Primary Care Provider] - Stand Alone Forms: [employer] Info Instructions
[2023-03-01 09:49] VITALS: BP 133/100; O2SAT 98
[2023-03-01] MEDS: ACETAMINOPHEN 500 MG TABLET 1000 MG PO (09:51)
[2023-03-01] MEDS: IBUPROFEN 200 MG TABLET 600 MG PO (09:51)
--- NOTE | 2023-03-01 10:19 | ED.NURSE ---
Pt D/C at 10:17 am with no other questions. Vitally unchanged/ stable at time of discharge. No further questions to follow up with . Nisha at bedside and also updated on plan.
== END 2023-03-01 10:17 | disposition home or self-care (01) ==
LOC: ED 10:08
PROVIDERS: Emergency Provider Emergency Medicine Emergency Medical Services; PCP Internal Medicine
DX: R07.89 Other chest pain (principal)
CPT/HCPCS: 93005; 99284; A9270

== ENCOUNTER 2023-08-15 21:32 | Emergency (ER) | payer BC, SELFPAY ==
[2023-08-15 21:36] VITALS: BP 146/90; PULSE 72; RESP 18; TEMP 36.1; O2SAT 98; BMI 26.7
--- NOTE | 2023-08-15 22:03 | ED.GENADULT ---
HPI - General Adult General Time Seen by Provider: 22:03 Date Seen: 08/15/23 Chief complaint: Abdominal Pain Stated complaint: Chest pain, dizziness, headache Time Seen by Provider: 08/15/23 22:03 Source: patient and RN notes reviewed Mode of arrival: ambulatory Limitations: no limitations History of Present Illness HPI narrative: This 33-year-old male is being seen for concern of illness, his fiancee is also going to be seen. His daughter tested positive for strep this morning. Earlier today he felt dizzy in the garage, states he almost fell over. He has had increased heartburn, some epigastric discomfort, no nausea vomiting or diarrhea, no urinary symptoms. He has felt fevers but has not checked his temperature. He feels a little heavy in his chest, little chest tightness and feels like he starting to cough. He has had no sore throat. He started to feel ill yesterday, took ibuprofen and Tylenol earlier this morning. He has been able to eat and drink, does not feel like he needs any fluids. States this almost feels like COVID when he had it before. He has a headache with this. He denies any history of asthma or respiratory problems, denies any prior abdominal surgeries. He does state he has a hiatal hernia and no reflux but it is really bad with his current symptoms. Related Data Home Medications Medication Instructions Recorded Confirmed cholecalciferol (vitamin D3) 50 2,000 unit PO DAILY 01/24/22 06/17/23 mcg (2,000 unit) capsule (Vitamin D3) Previous Rx's Medication Instructions Recorded escitalopram oxalate 10 mg tablet 10 mg PO QDAY Anxiety #90 tabs 03/08/23 (Lexapro) venlafaxine 75 mg capsule,extended 75 mg PO DAILY Anxiety #90 caps 03/08/23 release 24 hr propranolol 20 mg tablet 20 mg PO BID Hypertension #180 tabs 03/09/23 risankizumab-rzaa 150 mg/mL 150 mg subcut Q12W #1 mL 06/17/23 subcutaneous syringe (Skyrizi) lorazepam 2 mg tablet 2 mg PO Q12H Anxiety #30 tabs 08/10/23 Allergies Allergy/AdvReac Type Severity Reaction Status Date / Time No Known Drug Allergies Allergy Verified 03/08/23 16:08 Review of Systems Status of ROS: Reports: 6 or more systems reviewed and unremarkable except as noted in History and below [facility] Medical History Sinus infection ?J32.9 - Chronic sinusitis, unspecified (ICD-10) Abdominal pain ?R10.9 - Unspecified abdominal pain (ICD-10) Depression ?F32.A - Depression, unspecified (ICD-10) Subcutaneous nodule ?R22.9 - Localized swelling, mass and lump, unspecified (ICD-10) Lump on face ?R22.0 - Localized swelling, mass and lump, head (ICD-10) Flank pain ?R10.9 - Unspecified abdominal pain (ICD-10) Acute viral pharyngitis ?J02.9 - Acute pharyngitis, unspecified (ICD-10) Acute gastritis ?K29.00 - Acute gastritis without bleeding (ICD-10) Abdominal pain ?R10.9 - Unspecified abdominal pain (ICD-10) Social History Smoking Status: Current every day smoker What tobacco products do you use: cigarettes Smoking packs per day: 1 Smoking cigarettes per day: 20.0 Do you use any of these nicotine containing products: None Second hand tobacco smoke exposure: No How often do you have a drink containing alcohol: monthly or less AUDIT-C Alcohol total score: 1 Non-prescribed substance use: denies use Little interest or pleasure in doing things: not at all Feeling down, depressed, or hopeless: more than half the days service: No Exam Const: Vital Signs, click to edit/add: Vital Signs - 24 hr 08/15/23 21:36 Temperature 96.9 F L Pulse Rate [Left P ulse Oximeter] 72 Respiratory Rate 18 Blood Pressure [Ri ght Upper Arm] 146/90 H Pulse Oximetry 98 Oxygen Delivery Me thod Room Air 33-year-old male is alert, interactive, no apparent distress. He is breathing easy on room air, speech is normal. Pupils equal round reactive, sclerae clear, extraocular muscles intact. Face is symmetric, oropharynx are mucosa, no exudates erythema. TMs canals are normal. Neck is supple, no adenopathy. Lungs are clear, good air entry, no wheezing crackles. CV regular rate and rhythm, no murmur. Abdomen is soft, nontender, nondistended, no organomegaly, no rebound or guarding. He has normal bowel sounds. He is ambulatory into the ED of his own accord. Documenting provider has reviewed patient's vital signs: yes Course Course ED Course: Patient would like to proceed with blood work. We have already collected strep DNA and triple viral swab. Will get a portable chest x-ray to look at his lungs, see if there is any infiltrate developing. Will get a full complement of labs. This is likely a viral illness given his fiancee has similar symptoms. We are ruling out strep given his daughter was sick with this this morning. He is currently hemodynamically stable, afebrile at this time. Reevaluation(s) Time of Reevaluation #1: 23:26 Reevaluation #1: Reviewed negative testing, negative chest x-ray. This is likely an early viral syndrome as they both have very similar symptoms. We did discuss retesting if ongoing symptoms. Plan to discharge to home at this time. No further interventions needed. Vital Signs Vital signs: Initial Vital Signs Temperature 96.9 F L 08/15/23 21:36 Temperature Source Temporal Artery Scan 08/15/23 21:36 Pulse Rate 72 08/15/23 21:36 Pulse Rhythm Regular 08/15/23 21:36 Respiratory Rate 18 08/15/23 21:36 Blood Pressure 146/90 H 08/15/23 21:36 Blood Pressure Mean 108 H 08/15/23 21:36 Blood Pressure Position Sitting 08/15/23 21:36 Pulse Oximetry 98 08/15/23 21:36 Oxygen Delivery Method Room Air 08/15/23 21:36 Vital Signs Temperature 96.9 F L 08/15/23 21:36 Pulse Rate 72 08/15/23 21:36 Respiratory Rate 18 08/15/23 21:36 Blood Pressure 146/90 H 08/15/23 21:36 Pulse Oximetry 98 08/15/23 21:36 Oxygen Delivery Method Room Air 08/15/23 21:36 Temperature 96.9 F L 08/15/23 21:36 Pulse Rate 72 08/15/23 21:36 Respiratory Rate 18 08/15/23 21:36 Blood Pressure 146/90 H 08/15/23 21:36 Pulse Oximetry 98 08/15/23 21:36 Oxygen Delivery Method Room Air 08/15/23 21:36 Medical Decision Making Lab Data Lab results reviewed: Yes I reviewed the patient's lab results Labs: Lab Results 08/15/23 08/15/23 Range/Units 21:50 22:20 WBC 8.73 (4.50-11.00) K/uL RBC 5.00 (4.30-5.90) m/uL Hgb 15.1 (13.5-17.5) gm/dL Hct 42.6 (37.0-53.0) % MCV 85 (80-100) fL MCH 30 (26-34) pg MCHC 35 (32-36) gm/dL RDW Coeff of Gavino 11.6 (11.5-15.5) % Plt Count 212 (140-440) K/uL Neut % (Auto) 47.7 (42.0-72.0) % Lymph % (Auto) 42.0 (20-44) % Teller % (Auto) 7.1 (0.0-11.0) % Eos % (Auto) 2.4 (0.0-7.0) % Baso % (Auto) 0.6 (0.0-3.0) % Neut # (Auto) 4.16 (1.7-7.0) K/uL Lymph # (Auto) 3.67 H (0.90-2.90) K/uL Teller # (Auto) 0.60 (0.00-0.90) K/UL Eos # (Auto) 0.21 (0.00-0.50) K/uL Baso # (Auto) 0.05 (0.00-0.30) K/uL Abs Immat Gran (auto) 0.02 (0.00-0.30) K/uL Imm/Tot Granulo (auto) 0.2 % Sodium 139 (135-149) mmol/L Potassium 3.3 L (3.6-5.1) mmol/L Chloride 110 (96-114) mmol/L Carbon Dioxide 28 (20-32) mmol/L Anion Gap 1 L (7-15) mEq/L BUN 12 (5-24) mg/dL Creatinine 1.1 (0.5-1.5) mg/dL Estimated Creat Clear 97.70 Estimated GFR 90 ml/min Glucose 114 (60-115) mg/dL Lactate 1.5 (0.5-1.9) mmol/L Calcium 9.2 (8.4-10.6) mg/dL Total Bilirubin 0.9 (0.1-1.5) mg/dL AST 34 (12-35) U/L ALT 51 H (4-50) U/L Alkaline Phosphatase 85 (40-150) U/L Troponin I < 0.01 L (0.01-0.04) ng/mL C-Reactive Protein < 0.5 L (0.5-1.0) mg/dL Total Protein 7.3 (6.0-8.3) g/dL Albumin 4.3 (3.3-5.0) g/dL Lipase 139 (23-300) U/L SARS-CoV-2 (PCR) Negative SARS-CoV-2 (Negative) Influenza Type A (PCR) Negative PCR FLU A (Negative) Influenza Type B (PCR) Negative PCR FLU B (Negative) RSV (PCR) Negative PCR RSV (Negative) Group A Strep DNA NOT DETECTED (Not Detectd) Imaging Data Chest x-ray: Attestation: I have reviewed the pertinent imaging results. My impression: No acute pathology on my preliminary review. Radiologist's impression: Patient: AMBER MAN Facility:?[facility] Patient ID:?[id number] Site Patient ID:?[id number]. Site :?09/26/1960 Study:?CT Head W/O-08/15/2023 9:45:16 PM Ordering Physician:KHUSHI Final Report: INDICATION: Headache. TECHNIQUE: Noncontrast CT images of the brain. COMPARISON: None. FINDINGS: Mild diffuse cerebral volume loss. No mass effect or midline shift. The mckeon white differentiation is maintained. No acute intracranial hemorrhage or pathologic extra-axial fluid collection. Scattered hypoattenuation in the supratentorial white matter, typical for mild chronic microvascular ischemic changes. Intracranial atherosclerotic calcifications. The globes are symmetric. The calvarium is intact. Minimal ethmoid sinus mucosal thickening. The mastoid air cells are clear. IMPRESSION: No acute intracranial hemorrhage or mass effect. Please note that all CT scans at this facility use dose modulation, iterative reconstruction, and/or weight-based dosing when appropriate to reduce radiation dose to as low as reasonably achievable. Dictated by Song Florence MD @ 08/15/2023 9:53:09 PM (Electronic Signature) ECG Data Attestation: I personally reviewed and interpreted this ECG as follows: (Normal sinus rhythm, 66 beats per minute. Incomplete right bundle branch block. He flipped T-waves lead [address] segment changes.) Prior ECG tracings: available for review (No significant change compared to EKG from 03/01/2023. Flipped T-waves in the lateral precordial lead actually improved on today's EKG.) Discharge Plan Discharge Clinical Impression: Acute viral syndrome Patient Disposition: Home, Self-Care Condition: Stable Instructions: Viral Syndrome (ED) Additional Instructions: Rest, plenty of fluids. Tylenol and ibuprofen for fever or symptom control, can also use other ecat-pky-ofhmbxz medicines as needed for symptoms. Consider retesting certainly for COVID if you continue with symptoms, would recheck in 2-3 days. If you are worsening, have increased concerns, it is always recommended to seek re-evaluation. Activity Level: Activity as Tolerated Discharge Diet: Regular Prescriptions: No Action Skyrizi 150 mg/mL syringe 150 mg subcut Q12W Qty: 1 2RF escitalopram oxalate [Lexapro] 10 mg tablet 10 mg PO QDAY Qty: 90 3RF venlafaxine 75 mg capsule,extended release 24hr 75 mg PO DAILY Qty: 90 3RF cholecalciferol (vitamin D3) [Vitamin D3] 50 mcg (2,000 unit) capsule 2,000 unit PO DAILY Patient Comments: TAKE 1 CAPSULE BY MOUTH DAILY propranolol 20 mg tablet 20 mg PO BID Qty: 180 3RF lorazepam 2 mg tablet 2 mg PO Q12H Qty: 30 0RF Follow Up/Referrals: Randy Killian MD [Primary Care Provider] - Stand Alone Forms: [email or web address] Info Instructions
--- NOTE | 2023-08-15 22:09 | XR_ITS ---
Patient: RUBIO CUMMINGS Facility:?[facility] Patient ID:?[id number] Site Patient ID:?[id number]. Site :?1990 Study:?XRay-Chest PORTABLE-08/15/2023 10:49:18 PM Ordering Physician:KHUSHI Final Report: INDICATION: Chest tightness, cough. TECHNIQUE: Chest 1 view. COMPARISON: Chest radiograph 01/24/2022. FINDINGS: No focal consolidation, pleural effusion, or pneumothorax. Normal heart size and pulmonary vascularity. The bones are unremarkable. IMPRESSION: No acute cardiopulmonary findings. Dictated by Ning Garza MD @ 08/15/2023 11:20:03 PM Signed by:?Ning Garza MD @08/15/2023 11:20:03 PM (Electronic Signature)
--- OUTSIDE RECORDS SUMMARY | 2023-08-15 22:24 | XMS_ITS | Clinical Summary ---
Author Name Unknown Organization [facility] Address [place], [place] [address] Care Team Providers Care Cement Despatch Operator Name Role Phone Pcp, No Primary Care Provider Unavailabl e Allergies No known active allergies Medications Medication Sig Dispensed Refills Start Date End Date Status escitalopram oxalate (LEXAPRO) 20 mg tabletIndications:Anx iety state Take 1 tablet by mouth every morning. 30 tablet 5 05/31/2019 Active LORazepam (ATIVAN) 2 mg tabIndications:Anxiet y state Take 1 tablet by mouth 2 times daily if needed for Anxiety. Do not fill until 07/28/19 60 tablet 08/25/2019 Active Active Problems Problem Noted Date Diagnosed Date Psoriasis 06/28/2019 Overview: Started at age 14. Depression, major 07/06/2008 Anxiety state, unspecified 01/18/2008 Encounters Date Type Department Care Team Description 06/18/2023 Lab Requisition [facility] [phone] Shruti Bear MD from Last 3 Months Immunizations Name Administration Dates Next Due DTP 12/18/1993,12/22/1991,12/01/1990 ,1989 Hepatitis B (Peds) 12/28/2001 Influenza Virus, Unspecified 02/06/2009 Influenza, IIV3 (Age 6-35 mos) 02/10/2015,2013,02/17/2013 MMR 12/28/2001,12/01/1990 Oral Polio Vaccine 12/18/1993,12/22/1991, 991,1989 Tdap 09/13/2013 Family History Medical History Relation Name Comments Diabetes Father Relation Name Status Comments Father Social History Tobacco Use Types Packs/Day Years Used Date Smoking Tobacco: Every Day Cigarettes Last attempted to quit: 01/13/2008 Smokeless Tobacco: Never Tobacco Cessation:Ready to Q uit: No; Counseling Given: Yes Alcohol Use Standard Drinks/Week Comments No 0 (1 standard drink = 0.6 oz pur e alcohol) PHQ-2 Answer Date Recorded PHQ-2 Score 3 05/31/2019 Social Connections Answer Date Recorded Frequency of Communication with Friends and Fami ly Not on file 05/03/2021 Financial Resource Strain Answer Date R ecorded Difficulty of Paying Living Expenses Not on file 05/03/2021 Difficulty of Paying Living Expenses Not on file 05/03/2021 Sex and Gender Information Value Date Recorded Sex Assigned at Not on file Gender Identity Not on file Sexual Orientation Not on file Obstetrics History Last Filed Vital Signs Vital Sign Reading Time Taken Comments Blood Pressure 124/78 06/28/2019 2:14 PM BRICK BAKER Pulse 62 06/28/2019 2:14 PM BRICK BAKER Temperature 36.8 ??C (98.3 ??F) 06/28/2019 2:14 PM CS T Respiratory Rate 14 06/16/2019 12:59 PM BRICK BAKER Oxygen Saturation 99% 06/28/2019 2:14 PM BRICK BAKER Inhaled Oxygen Concentration - - Weight 77.6 kg (171 lb) 06/28/2019 2:14 PM BRICK BAKER Height 174 cm (5' 8.5) 06/28/2019 2:14 PM BRICK BAKER Body Mass Index 25.62 06/28/2019 2:14 PM BRICK BAKER Plan of Treatment Upcoming Encounters Date Type Department Care Team (Late st Contact Info) Description 09/20/2023 8:20 AM CDT Office Visit [facility] [address] [place] [address] Yared Koch MD [address] [place] [address] Health Maintenance Due Date Last Done Comments HIV for age 15-65 2004 Hepatitis C screening for age 18-79 08/06/2007 BMI (ht and wt on same day) for age 18+ 06/28/2020 06/28/2019, 06/16/2019, 06/06/2019, Additional history exists Depression screening for age 12+ 06/28/2020 06/28/2019, 05/31/2019, 05/31/2019 COVID-19 vaccine series (2022-24 season) 2023 Tetanus booster 09/14/2023 09/13/2013 Influenza for age 9-49 01/02/2024 02/06/2009 Tdap Completed 09/13/2013 Pneumococcal series for age 6-64 Aged Out No longer eligible based on patient's age to complete this topic Procedures Procedure Name Priority Date/Time Associated Diagnosis Comments QFT MITOGEN PERFORMABLE Routine 06/17/2023 2:00 PM BRICK BAKER QFT TB2 PERFORMABLE Routine 06/17/2023 2 :00 PM BRICK BAKER QFT TB1 PERFORMABLE Routine 06/17/2023 2 :00 PM BRICK BAKER QUANTIFERON TB GOLD PLUS Routine 06/17/2023 2:00 PM BRICK BAKER QUANTIFERON TB GOLD PLUS Routine 06/17/2023 2:00 PM BRICK BAKER from Last 3 Months Results * QFT MITOGEN PERFORMABLE (06/17/2023 2:00 PM BRICK BAKER) MITOGEN 10.00 IU/mL 06/22/2023 9:33 AM BRICK BAKER [facility] Blood BLOOD SPECIMEN / Unknown Client Collect / Unknown 06/17/2023 2:00 PM BRICK BAKER 06/18/2023 10:11 PM BRICK BAKER Shruti Bear MD [facility] [address] [place] [address], * QFT TB2 PERFORMABLE (06/17/2023 2:00 PM BRICK BAKER) TB2 0.06 IU/mL 06/22/2023 9:33 AM BRICK BAKER [facility] Blood BLOOD SPECIMEN / Unknown Client Collect / Unknown 06/17/2023 2:00 PM BRICK BAKER 06/18/2023 10:11 PM BRICK BAKER Shruti Bear MD CHEMISTRY [facility] [address] [place] [address], [place] * QFT TB1 PERFORMABLE (06/17/2023 2:00 PM BRICK BAKER) TB1 0.06 IU/mL 06/22/2023 9:33 AM BRICK BAKER [facility] Blood BLOOD SPECIMEN / Unknown Client Collect / Unknown 06/17/2023 2:00 PM BRICK BAKER 06/18/2023 10:11 PM BRICK BAKER Shruti Bear MD CHEMISTRY Performing Organization Address City/[facility]/ZIP Co de Phone Number [facility] [address] [place] [address], [place] * QUANTIFERON TB GOLD PLUS (06/17/2023 2:00 PM BRICK BAKER) QFTP NIL 0.05 06/22/2023 9:33 AM BRICK BAKER [facility] TB1 0.06 IU/mL 06/22/2023 9:33 AM [facility] TB2 0.06 IU/mL 06/22/2023 9:33 AM BRICK BAKER [facility] MITOGEN 10.00 IU/mL 06/22/2023 9:33 AM [facility] QFTP TB AG1 - NIL 0.01 024 9:33 AM BRICK BAKER [facility] TB1-NIL % OF NIL 20 % 06/22/19 9:33 AM [facility] QFTP TB AG2 - NIL 0.01 024 9:33 AM [facility] TB2-NIL % OF NIL 20 % 06/22/19 24 9:33 AM [facility] QFTP MITOGEN - NIL 9.95 2023 9:33 AM BRICK BAKER [facility]- [facility]TRIL LABORATORY QFTP QUANTIFERON INTERPRETATION Negative Negative 06/22/2023 9:33 AM BRICK BAKER [facility] Blood BLOOD SPECIMEN / Unknown Client Collect / Unknown 06/17/2023 2:00 PM BRICK BAKER 06/18/2023 10:11 PM BRICK BAKER Narrative [facility] - 06/22/2023 9:33 AM BRICK BAKER M. tuberculosis infection not likely, but cannot be excluded in cases of immunosuppression. CAUTION: The performance of QuantiFERON-TB Gold Plus has not been evaluated in specimens from: - Individuals with impaired or altered immune factors (HIV infections, transplant patients, those receieving immunosuppressive drugs such as corticosteroids) and those with other clinical conditions (e.g., diabetes, hematological disorders). - Individuals younger than 17 years old. ??Refer to CDC website for testing recommendations in children 6-17 years old. - women Shruti Bear MD CHEMISTRY [facility] [address] [place] [address], [place] from Last 3 Months Care Teams Cement Despatch Operator Relationship Specialty Start Date End Date Pcp, No . PCP - General 05/23/19
--- OUTSIDE RECORDS SUMMARY | 2023-08-15 22:24 | XMS_ITS | Clinical Summary ---
Author Name Unknown Organization [facility] Address [address] [place] [address]. [place] [address] Care Team Providers Care Cascade Operator Name Role Phone No Ref-Primary, Physician Primary Care Provider Allergies No known active allergies Medications Medication Sig Dispensed Refills Start Date End Date Status LORazepam (ATIVAN PO) Take 2 mg by mouth as needed Active Escitalopram Oxalate (LEXAPRO PO) Take 10 mg by mouth daily Active Social History Tobacco Use Types Packs/Day Years Used Date Smoking Tobacco: Every Day Cigarettes Smokeless Tobacco: Never Alcohol Use Standard Drinks/Week Comments Yes 0 (1 standard drink = 0.6 oz pur e alcohol) rarely Adolescent Education Answer Date Record ed Getting School Help Needed Not on file 02/17 Sex and Gender Information Value Date Recorded Sex Assigned at Not on file Gender Identity Not on file Sexual Orientation Not on file Last Filed Vital Signs Vital Sign Reading Time Taken Comments Blood Pressure 155/129 12/28/2017 12:15 PM CDT Pulse 80 11/23/2017 3:10 PM CDT Temperature 36.9 ??C (98.4 ??F) 12/28/2017 10:45 AM C DT Respiratory Rate 16 12/28/2017 10:45 AM CDT Oxygen Saturation 99% 12/28/2017 12:00 PM CDT Inhaled Oxygen Concentration - - Weight 77.6 kg (171 lb) 12/28/2017 10:45 AM CDT Height 172.7 cm (5' 8) 12/28/2017 10:45 AM CDT Body Mass Index 26 12/28/2017 10:45 AM CDT Plan of Treatment Health Maintenance Due Date Last Done Comments ADVANCE CARE PLANNING 1989 ANNUAL REVIEW OF HM ORDERS 1989 YEARLY PREVENTIVE VISIT 1989 Pneumococcal Vaccine: Pediat rics (0 to 5 Years) and At-Risk Patients (6 to 64 Years) (1 of 2 - PCV) 08/06/1995 HIV SCREENING 2004 HEPATITIS C SCREENING 08/06/2007 HEPATITIS B IMMUNIZATION (1 of 3 - 19+ 3-dose series) 2008 DTAP/TDAP/TD IMMUNIZATION (1 - Tdap) 2014 COVID-19 Vaccine (1 - 2022-2 4 season) 2023 INFLUENZA VACCINE (#1) 2023 PHQ-2 (once per calendar year) 2023 HPV IMMUNIZATION Aged Out No longer e ligible based on patient's age to complete this topic IPV IMMUNIZATION Aged Out No longer e ligible based on patient's age to complete this topic MENINGITIS IMMUNIZATION Aged Out No l onger eligible based on patient's age to complete this topic RSV MONOCLONAL ANTIBODY Aged Out No l onger eligible based on patient's age to complete this topic Care Teams Cascade Operator Relationship Specialty Start Date End Date No Ref-Primary, Physician PCP - General 11/05/17
--- OUTSIDE RECORDS SUMMARY | 2023-08-15 22:24 | XMS_ITS | Referral Summary ---
Author Name Unknown Organization [place] Address [address] [place] [address]. [place] [address] Care Team Providers Care Backup Sawyer Name Role Phone No Ref-Primary, Physician Primary [...] 12/28/2017 10:45 AM CDT Plan of Treatment Not on file Care Teams Backup Sawyer Relationship Specialty Start Date End Date No Ref-Primary, Physician PCP - General 11/05/17
[2023-08-15 22:32] LABS: Lactate* 1.5 mmol/L (0.5-1.9)
[2023-08-15 22:32] LABS: Strep A DNA Probe* NOT DETECTED (Not Detectd)
[2023-08-15 22:34] LABS: Basophils Absolute Auto 0.05 K/uL (0.00-0.30); Basophils Percent Auto 0.6 % (0.0-3.0); Eosinophils Absolute Auto 0.21 K/uL (0.00-0.50); Eosinophils Percent Auto 2.4 % (0.0-7.0); Hematocrit 42.6 % (37.0-53.0); Hemoglobin* 15.1 gm/dL (13.5-17.5); Immature Granulocytes Abs Auto 0.02 K/uL (0.00-0.30); Immature Granulocytes Pct Auto 0.2 %; Lymphocytes Absolute Auto 3.67 K/uL (0.90-2.90); Mean Corpuscular HGB Conc 35 gm/dL (32-36); Mean Corpuscular Hemoglobin 30 pg (26-34); Mean Corpuscular Volume 85 fL (80-100); Monocytes Percent Auto 7.1 % (0.0-11.0); Neutrophils Absolute Auto 4.16 K/uL (1.7-7.0); Neutrophils Percent Auto 47.7 % (42.0-72.0); Platelet Count* 212 K/uL (140-440); RDW Coefficient of Variation % 11.6 % (11.5-15.5); White Blood Count* 8.73 K/uL (4.50-11.00)
[2023-08-15 22:42] LABS: Slide Review Reflex No
[2023-08-15 22:43] LABS: PCR FLU A Negative PCR FLU A (Negative); PCR FLU B Negative PCR FLU B (Negative); PCR RSV Negative PCR RSV (Negative); SARS PCR* Negative SARS-CoV-2 (Negative)
[2023-08-15 22:48] LABS: Albumin* 4.3 g/dL (3.3-5.0); Chloride* 110 mmol/L (96-114); Sodium* 139 mmol/L (135-149)
[2023-08-15 22:49] LABS: Potassium* 3.3 mmol/L (3.6-5.1)
[2023-08-15 22:51] LABS: Bilirubin Total* 0.9 mg/dL (0.1-1.5); Creatinine* 1.1 mg/dL (0.5-1.5); Estimated Glomerular Filt Rate 90 ml/min
[2023-08-15 22:52] LABS: Alanine Aminotransferase* 51 U/L (4-50); Alkaline Phosphatase* 85 U/L (40-150); Anion Gap 1 mEq/L (7-15); Aspartate Amino Transferase* 34 U/L (12-35); Blood Urea Nitrogen* 12 mg/dL (5-24); Calcium* 9.2 mg/dL (8.4-10.6); Carbon Dioxide* 28 mmol/L (20-32); Glucose* 114 mg/dL (60-115); Lipase* 139 U/L (23-300); Total Protein* 7.3 g/dL (6.0-8.3)
[2023-08-15 22:57] LABS: C Reactive Protein* < 0.5 mg/dL (0.5-1.0)
[2023-08-15 23:05] LABS: Troponin I* < 0.01 ng/mL (0.01-0.04)
== END 2023-08-15 23:36 | disposition home or self-care (01) ==
PROVIDERS: Emergency Provider Family Medicine; PCP Internal Medicine
DX: B34.9 Viral infection, unspecified (principal)
CPT/HCPCS: 36415; 71045; 80053; 83605; 83690; 84484; 85025; 86140; 87631; 87651; 93005; 99283; 99284; 99285

== ENCOUNTER 2023-11-05 18:03 | Emergency (ER) | payer BC, SELFPAY ==
[2023-11-05 18:07] VITALS: BP 160/106; PULSE 62; RESP 18; TEMP 37; O2SAT 98; BMI 28.1
--- NOTE | 2023-11-05 18:17 | ED.GENADULT ---
HPI - General Adult General Chief complaint: Laceration/Wound Stated complaint: suture removal Time Seen by Provider: 11/05/23 18:15 Source: patient Mode of arrival: ambulatory Limitations: no limitations History of Present Illness HPI narrative: 33-year-old male coming into the ER for suture removal. Patient had a laceration to the left thumb, sutures were placed 2 weeks ago per the patient. Denies any complications. Related Data Previous Rx's ?Medication ?Instructions ?Recorded venlafaxine 75 mg capsule,extended 75 mg PO DAILY Anxiety #90 caps 03/08/23 release 24 hr propranolol 20 mg tablet 20 mg PO BID Hypertension #180 tabs 03/09/23 risankizumab-rzaa 150 mg/mL 150 mg subcut Q12W #1 mL 06/17/23 subcutaneous syringe (Skyrizi) escitalopram oxalate 20 mg tablet 20 mg PO QDAY #90 tabs 10/11/23 (Lexapro) lorazepam 2 mg tablet 2 mg PO Q12H Anxiety #60 tabs 10/11/23 tadalafil 5 mg tablet (Cialis) 5 mg PO QDAY #30 tabs 10/11/23 Allergies Allergy/AdvReac Type Severity Reaction Status Date / Time No Known Drug Allergies Allergy Verified 10/11/23 16:19 [facility] Medical History (Updated 11/05/23 @ 18:19 by Maria G Bobo MD) Erectile dysfunction ?N52.9 - Male erectile dysfunction, unspecified (ICD-10) Sinus infection ?J32.9 - Chronic sinusitis, unspecified (ICD-10) Abdominal pain ?R10.9 - Unspecified abdominal pain (ICD-10) Depression ?F32.A - Depression, unspecified (ICD-10) Subcutaneous nodule ?R22.9 - Localized swelling, mass and lump, unspecified (ICD-10) Lump on face ?R22.0 - Localized swelling, mass and lump, head (ICD-10) Flank pain ?R10.9 - Unspecified abdominal pain (ICD-10) Acute viral pharyngitis ?J02.9 - Acute pharyngitis, unspecified (ICD-10) Acute gastritis ?K29.00 - Acute gastritis without bleeding (ICD-10) Abdominal pain ?R10.9 - Unspecified abdominal pain (ICD-10) Social History Smoking Status: Current every day smoker What tobacco products do you use: cigarettes Smoking packs per day: 1 Smoking cigarettes per day: 20.0 Do you use any of these nicotine containing products: None Second hand tobacco smoke exposure: Yes How often do you have a drink containing alcohol: monthly or less How many standard drinks containing alcohol do you have on a typical day: 1 or 2 How often do you have six or more drinks on one occasion: Never AUDIT-C Alcohol total score: 1 Non-prescribed substance use: denies use Little interest or pleasure in doing things: several days Feeling down, depressed, or hopeless: several days service: No Exam Narrative: Exam Narrative: Thumb appears to be well-healed. Const: Vital Signs, click to edit/add: Vital Signs - 24 hr 11/05/23 18:07 Temperature 98.6 F Pulse Rate [Pulse Oximeter] 62 Respiratory Rate 18 Blood Pressure [Ri ght Upper Arm] 160/106 H Pulse Oximetry 98 Oxygen Delivery Me thod Room Air Course Course ED Course: Sutures removed per nursing. Vital Signs Vital signs: Initial Vital Signs Temperature 98.6 F 11/05/23 18:07 Temperature Source Temporal Artery Scan 11/05/23 18:07 Pulse Rate 62 11/05/23 18:07 Pulse Rhythm Regular 11/05/23 18:07 Respiratory Rate 18 11/05/23 18:07 Blood Pressure 160/106 H 11/05/23 18:07 Blood Pressure Mean 124 H 11/05/23 18:07 Blood Pressure Position Sitting 11/05/23 18:07 Pulse Oximetry 98 11/05/23 18:07 Oxygen Delivery Method Room Air 11/05/23 18:07 Vital Signs Temperature 98.6 F 11/05/23 18:07 Pulse Rate 62 11/05/23 18:07 Respiratory Rate 18 11/05/23 18:07 Blood Pressure 160/106 H 11/05/23 18:07 Pulse Oximetry 98 11/05/23 18:07 Oxygen Delivery Method Room Air 11/05/23 18:07 Temperature 98.6 F 11/05/23 18:07 Pulse Rate 62 11/05/23 18:07 Respiratory Rate 18 11/05/23 18:07 Blood Pressure 160/106 H 11/05/23 18:07 Pulse Oximetry 98 11/05/23 18:07 Oxygen Delivery Method Room Air 11/05/23 18:07 Medical Decision Making MDM Narrative Medical decision making narrative: Patient presenting for suture removal. Discharge Plan Discharge Clinical Impression: Encounter for removal of sutures Patient Disposition: Home, Self-Care Condition: Stable Additional Instructions: Continue to keep finger clean and dry. Would cover with a Band-Aid if you are working. Avoid soaking for prolonged periods of time until completely healed. Prescriptions: No Action Skyrizi 150 mg/mL syringe 150 mg subcut Q12W Qty: 1 2RF escitalopram oxalate [Lexapro] 20 mg tablet 20 mg PO QDAY Qty: 90 2RF lorazepam 2 mg tablet 2 mg PO Q12H Qty: 60 0RF tadalafil [Cialis] 5 mg tablet 5 mg PO QDAY Qty: 30 3RF venlafaxine 75 mg capsule,extended release 24hr 75 mg PO DAILY Qty: 90 3RF propranolol 20 mg tablet 20 mg PO BID Qty: 180 3RF Follow Up/Referrals: Randy Killian MD [Primary Care Provider] - Stand Alone Forms: Friendsurance Info Instructions
--- OUTSIDE RECORDS SUMMARY | 2023-11-05 18:23 | XMS_ITS | Encounter Summary ---
Author Organization [place] Address [facility] [place] [address] Care Team Providers Care Clinical Safety Manager Name Role Phone No Ref-Primary, Physician Primary Care Provider Encounter Details Date Type Department Care Team (Latest Contact Info) Description 10/22/2023 Travel Social History Tobacco Use Types Packs/Day Years [...] on file Sexual Orientation Not on file documented as of this encounter Plan of Treatment Not on file documented as of this encounter Visit Diagnoses Not on filedocumented in this encounter Care Teams Clinical Safety Manager Relationship Specialty Start Date End Date No Ref-Primary, Physician PCP - General 10/22/23 documented as of this encounter
--- OUTSIDE RECORDS SUMMARY | 2023-11-05 18:23 | XMS_ITS | Clinical Summary ---
Author Organization [facility] Address [place], [place] [address] Care Team Providers Care Incinerator Operator Name Role Phone Pcp, No Primary [...] Depression, major 07/06/2008 Anxiety state, unspecified 01/18/2008 Immunizations Name Administration Dates Next Due DTP [...] Comments Blood Pressure 124/78 06/28/2019 2:14 PM LOCAL HAZMAT DRIVER Pulse 62 06/28/2019 2:14 PM LOCAL HAZMAT DRIVER Temperature 36.8 ??C (98.3 ??F) 06/28/2019 2:14 PM CS T Respiratory Rate 14 06/16/2019 12:59 PM LOCAL HAZMAT DRIVER Oxygen Saturation 99% 06/28/2019 2:14 PM LOCAL HAZMAT DRIVER Inhaled Oxygen Concentration - - Weight 77.6 kg (171 lb) 06/28/2019 2:14 PM LOCAL HAZMAT DRIVER Height 174 cm (5' 8.5) 06/28/2019 2:14 PM LOCAL HAZMAT DRIVER Body Mass Index 25.62 06/28/2019 2:14 PM LOCAL HAZMAT DRIVER Plan of Treatment Health Maintenance Due Date Last Done Comments HIV for age 15-65 2004 Hepatitis C screening for age 18-79 08/06/2007 BMI (ht and wt on same day) for age 18+ 06/28/2020 06/28/2019, 06/16/2019, 06/06/2019, Additional history exists Depression screening for age 12+ 06/28/2020 06/28/2019, 05/31/2019, 05/31/2019 COVID-19 vaccine series (2022- season) 2023 Tetanus booster 09/14/2023 09/13/2013 Influenza for age 9-49 01/02/2024 02/06/2009 Tdap Completed 09/13/2013 Pneumococcal series for age 6-64 Aged Out No longer eligible based on patient's age to complete this topic Care Teams Incinerator Operator Relationship Specialty Start Date End Date Pcp, No . PCP - General 05/23/19
--- OUTSIDE RECORDS SUMMARY | 2023-11-05 18:23 | XMS_ITS | Encounter Summary ---
Author Organization [place] Address [facility] [address] Care Team Providers Care Strategy Manager Name Role Phone No Ref-Primary, Physician Primary Care Provider Reason for Visit * Reason Comments Wound Check Encounter Details Date Type Department Care Team (Late st Contact Info) Description 10/25/2023 11:00 AM CDT - 10/25/2023 11:40 AM CDT Emergency [facility] Emergency Dept [address] [place] [id number] [phone] Salty Cole MD [facility] [address] [facility] [address] [place], [place] [address] Encounter for post surgical wound check Discharge Disposition: Home or Self Care Social History Tobacco Use Types Packs/Day Years [...] on file documented as of this encounter Last Filed Vital Signs Vital Sign Reading Time Taken Comments Blood Pressure 132/106 10/25/2023 10:57 AM CDT Pulse 64 10/25/2023 10:57 AM CDT Temperature 36.7 ??C (98.1 ??F) 10/25/2023 1 0:57 AM CDT Respiratory Rate 20 10/25/2023 10:5 7 AM CDT Oxygen Saturation 96% 10/25/2023 10: 57 AM CDT Inhaled Oxygen Concentration - - Weight 87.4 kg (192 lb 10.9 oz) 024 10:57 AM CDT Height 177.8 cm (5' 10) 10/25/2023 10: 57 AM CDT Body Mass Index 27.65 10/25/2023 10:57 AM CDT documented in this encounter Discharge Instructions * Discharge Instructions* Salty Cole MD - 10/25/2023 11:23 AM CDT Please monitor symptoms closely. Would recommend keeping the wound covered until it is fully healed. May begin the Keflex for possible very early infection. Given the numbness to your finger, it is possible you may have sustained a nerve injury. Follow-up with [facility] orthopedics hand specialist in 2 days for recheck. Return to the ER if you develop any new or troubling symptoms such as pain, fevers, increased redness, or any other concerns. * Attachments The following attachments cannot be sent through Care Everywhere. * Care for a Skin Wound: Video (Yakut) documented in this encounter Medications at Time of Discharge Medication Sig Dispensed Refills Start Date End Date Escitalopram Oxalate (LEXAPRO PO) Take 10 mg by mouth daily LORazepam (ATIVAN PO) Take 2 mg by mouth as needed cephALEXin (KEFLEX) 500 MG capsule Take 1 capsule (500 mg) by mouth 4 times daily for 5 days 20 capsule 10/25/2023 10/30/2023 documented as of this encounter ED Notes * Ruddy Perkins, RN - 10/25/2023 10:59 AM CDT Images from the original note were not included. Pt had stiches placed this past Wednesday. He has returned because the stitch line is draining and he is concerned it needs more stiches. Pt denies fevers, chills, smell from wound. Drainage described as red. Does endorse some numbness and tingling in left thumb. Pt does take Skyrizi and is worried about delayed healing. Triage Assessment (Adult) Row Name 10/25/23 1058 Triage Assessment Airway WDL WDL Respiratory WDL Respiratory WDL WDL Skin Circulation/Temperature WDL Skin Circulation/Temperature WDL WDL Cardiac WDL Cardiac WDL WDL Peripheral/Neurovascular WDL Peripheral Neurovascular WDL -- reports some numbness in left thumb. Cognitive/Neuro/Behavioral WDL Cognitive/Neuro/Behavioral WDL WDL * Salty Cole MD - 10/25/2023 10:47 AM CDT Emergency Department Note History of Present Illness Chief Complaint Wound Check HPI Gary Davey is a 33 year old male who presents to the ED for a wound check. The patient was in theED on 10/22/23 where he got 5 stitches for a laceration on his L thumb. He presented to the ED todaywhen the area of laceration is still bleeding, and is concerned that it needs more stitches. He endorses some numbness in his thumb. The patient is on Skyrizi for his psoriasis. No fevers. Notes somediscomfort about the thumb Independent Historian and child present at bedside and corroborate the above. Review of External Notes I reviewed the ED visit note from 10/22/23 where the patient presented for a laceration to his left thumb. The patient got 5 stitches. Past Medical History Medical History and Problem List History of kidney stones Psoriasis Renal disease Anxiety Medications Lexapro Ativan Skyrizi Surgical History Cystoscopy Ureteroscopy Physical Exam Patient Vitals for the past 24 hrs: BP Temp Temp src Pulse Resp SpO2 Height Weight 10/25/23 1057 (!) 132/106 98.1 ??F (36.7 ??C) Oral 64 20 96 % 1.778 m (5' 10) 87.4 kg (192 lb 10.9oz) Physical Exam General: Well-nourished Speaking in full sentences Eyes: Conjunctiva without injection or scleral icterus Resp: Lungs CTAB No crackles, wheezing or audible rubs Good air movement CV: Normal rate, regular rhythm S1 and S2 present No murmur, gallop or rub Skin: Warm, dry, well perfused Right thumb with sutures in place to dorsal / medial aspect of finger No expressible drainage, though scant drainage is noted on surface of bandage No bleeding Wound is moist (likely 2/2 bandage) Small region of open skin near proximal aspect of laceration Decreased sensation to light touch distal to the wound MSK: Moves all extremities No focal deformities or swelling Neuro: Alert Answers questions appropriately Moves all extremities equally Gait stable Psych: Normal affect, normal mood Diagnostics Lab Results Labs Ordered and Resulted from Time of ED Arrival to Time of ED Departure - No data to display Imaging No orders to display Independent Interpretation None ED Course Medications Administered Medications - No data to display Procedures Procedures Discussion of Management None Social Determinants of Health adding to complexity of care None ED Course ED Course as of 10/25/23 1854 WedOct 25, 2023 1105 I obtained the history and examined the patient as above. Medical Decision Making / Diagnosis [facility] Diagnoses: None MIPS None MDM Gary Davey is a 33-year-old male presenting to the emergency department for evaluation of a wound check. VS on presentation reveal elevated BP though otherwise are unremarkable. Examination as outlined above. He does have a bandage, that is near circumferential that was gently removed. Scant drainage was noted, though no evidence of active bleeding. Patient questioned the possibility of needing another stitch, which at this point, do feel poses greater risk than the benefit. Given his relative immunocompromised state, scant discharge, although wound does not appear with overt findings of cellulitis, cannot exclude very early infection and for that reason, using shared decision- making, have elected to begin Keflex, 4 times daily for the next 5 days. We discussed appropriate wound care and bandage of the wound. He also acknowledges feeling a numbness to the medial aspect of the thumb which I suspect may be secondary to nerve injury from his initial laceration. I have recommended follow-up with [facility] orthopedics hand specialist in the next 2-3 days for recheck of the wound. Referral information provided. He is to return to the ED with worsened pain, swelling, drainage, spreading redness, fevers or any other concerns. I have also provided a work note, allowing limited use of the right hand until symptoms improve. Patient comfortable with outlined plan of care and questions answered prior to discharge. Disposition The patient was discharged. ICD-10 Codes: ICD-10-CM 1. Encounter for post surgical wound check Z48.89 Discharge Medications Discharge Medication List as of 10/25/2023 11:24 AM START taking these medications Details cephALEXin (KEFLEX) 500 MG capsule Take 1 capsule (500 mg) by mouth 4 times daily for 5 days, Disp-20 capsule, R-0, E-Prescribe Scribe Disclosure: I, Liliana Carvajal, am serving as a scribe at 11:18 AM on 10/25/2023 to document services personally performed by Salty Cole MD based on my observations and the provider's statements to me. Salty Cole MD 10/25/23 1708 documented in this encounter Plan of Treatment Not on file documented as of this encounter Visit Diagnoses Diagnosis Encounter for post surgical wound check documented in this encounter Care Teams Strategy Manager Relationship Specialty Start Date End Date No Ref-Primary, Physician PCP - General 10/22/23 documented as of this encounter
--- OUTSIDE RECORDS SUMMARY | 2023-11-05 18:23 | XMS_ITS | Referral Summary ---
Author Organization [place] Address [facility] [place] [address] Care Team Providers Care Pole Shaver Name Role Phone No Ref-Primary, Physician Primary Care Provider Encounters Date Type Department Care Team Description 10/25/2023 Travel 10/25/2023 11:00 AM CDT - 10/25/2023 11:40 AM CDT Emergency [facility] Emergency Dept [address] [place] [address] Salty Cole MD Encounter for post surgical wound check Discharge Disposition: Home or Self Care 10/22/2023 Travel 10/22/2023 11:15 AM CDT - 10/22/2023 12:57 PM CDT Emergency [facility] Emergency Dept [address] [place] [address] Tameka Muse PA-C Laceration of left thumb without foreign body without damage to nail, initial encounter Discharge Disposition: Home or Self Care from Last 3 Months Allergies No known active allergies Medications Medication Sig Dispensed Refills Start Date End Date Status LORazepam (ATIVAN PO) Take 2 mg by mouth as needed Active Escitalopram Oxalate (LEXAPRO PO) Take 10 mg by mouth daily Active cephALEXin (KEFLEX) 500 MG capsule Take 1 capsule (500 mg) by mouth 4 times daily for 5 days 20 capsule 10/25/2023 10/30/2023 Immunizations Name Administration Dates Next Due TDAP (Adacel,Boostrix) 10/22/2023 Social History Tobacco Use Types Packs/Day Years [...] Mass Index 27.65 10/25/2023 10:57 AM CDT Plan of Treatment Not on file Procedures Procedure Name Priority Date/Time Associated Diagnosis Comments XR FINGER LEFT G/E 2 VIEWS STAT 10/22/2023 11:30 AM CDT from Last 3 Months Results * Fingers XR, 2-3 views, left (10/22/2023 11:30 AM CDT) Anatomical Region Laterality Modality Hand, Left Hand Left Computed Radiogr aphy Impressions 10/22/2023 11:40 AM CDT IMPRESSION: Views of the left thumb are negative for acute fracture or dislocation. Normal thumb joint spacing and alignment. SEMAJ BARRAGAN MD SYSTEM ID: [id number] Narrative 10/22/2023 11:40 AM CDT XR FINGER LEFT G/E 2 VIEWS 10/22/2023 11:30 AM HISTORY: Thumb injury. COMPARISON: None. Procedure Note Semaj Barragan MD - 10/22/2023 XR FINGER LEFT G/E 2 VIEWS 10/22/2023 11:30 AM HISTORY: Thumb injury. COMPARISON: None. IMPRESSION: Views of the left thumb are negative for acute fracture or dislocation. Normal thumb joint spacing and alignment. SEMAJ BARRAGAN MD SYSTEM ID: [id number] Tameka Muse PA-C IMG DIAGNOSTIC IMAGI NG ORDERABLES from Last 3 Months Care Teams Pole Shaver Relationship Specialty Start Date End Date No Ref-Primary, Physician PCP - General 10/22/23
--- OUTSIDE RECORDS SUMMARY | 2023-11-05 18:23 | XMS_ITS | Clinical Summary ---
Author Organization [place] Address [address] [facility] [address] Care Team Providers Care Property Disposal Manager Name Role Phone No Ref-Primary, Physician [...] for 5 days 20 capsule 10/25/2023 10/30/2023 Encounters Date Type Department Care Team Description 10/25/2023 11:00 AM CDT - 10/25/2023 11:40 AM CDT Emergency [facility] Emergency Dept [address] [place] [address] Salty Cole MD Encounter for post surgical wound check Discharge Disposition: Home or Self Care 10/25/2023 Travel 10/22/2023 11:15 AM CDT - 10/22/2023 12:57 PM CDT Emergency [facility] Emergency Dept [address] [place] [address] Tameka Muse PA-C Laceration of left thumb without foreign body without damage to nail, initial encounter Discharge Disposition: Home or Self Care 10/22/2023 Travel from Last 3 Months Immunizations Name Administration Dates Next Due TDAP [...] 10/25/2023 10:57 AM CDT Plan of Treatment Health Maintenance Due Date Last Done Comments ADVANCE CARE PLANNING 1989 ANNUAL REVIEW OF HM ORDERS 1989 YEARLY PREVENTIVE VISIT 1989 Pneumococcal Vaccine: Pediatrics (0 to 5 Years) and At-Risk Patients (6 to 64 Years) (1 of 2 - PCV) 08/06/1995 HEPATITIS B IMMUNIZATION (2 of 3 - 3-dose series) 01/25/2002 12/28/2001 HIV SCREENING 2004 HEPATITIS C SCREENING 08/06/2007 COVID-19 Vaccine ( season) 2023 08/30/2020, 08/09/2020 PHQ-2 (once per calendar year) 2023 INFLUENZA VACCINE (#1) 2024 5, 04/11/2014, 02/17/2013, Additional history exists DTAP/TDAP/TD IMMUNIZATION (8 - Td or Tdap) 10/21/2033 10/22/2023, 09/13/2013, 09/13/2013, Additional history exists IPV IMMUNIZATION Completed 12/18/1993, , 12/01/1990, Additional history exists HPV IMMUNIZATION Aged Out No longer e [...] and alignment. SEMAJ BARRAGAN MD SYSTEM ID: [id number] Narrative 10/22/2023 11:40 AM CDT XR FINGER [...] and alignment. SEMAJ BARRAGAN MD SYSTEM ID: [id number] Tameka Muse PA-C IMG DIAGNOSTIC IMAGI NG ORDERABLES from Last 3 Months Care Teams Property Disposal Manager Relationship Specialty Start Date End Date No Ref-Primary, Physician PCP - General 10/22/23
--- OUTSIDE RECORDS SUMMARY | 2023-11-05 18:23 | XMS_ITS | Encounter Summary ---
Author Organization [place] Address [facility] [place] [address] Care Team Providers Care Fios Line Installer Name Role Phone No Ref-Primary, Physician Primary Care Provider Encounter Details Date Type Department Care Team (Latest Contact Info) Description 10/25/2023 Travel Social History Tobacco Use Types Packs/Day [...] on filedocumented in this encounter Care Teams Fios Line Installer Relationship Specialty Start Date End Date No Ref-Primary, Physician PCP - General 10/22/23 documented as of this encounter
--- OUTSIDE RECORDS SUMMARY | 2023-11-05 18:23 | XMS_ITS | Encounter Summary ---
Author Organization [place] Address [facility] [place] [address] Care Team Providers Care Driller Portable Name Role Phone No Ref-Primary, Physician Primary Care Provider Reason for Visit * Reason Comments Laceration Encounter Details Date Type Department Care Team (Late st Contact Info) Description 10/22/2023 11:15 AM CDT - 10/22/2023 12:57 PM CDT Emergency [facility] [address] [place] [id number] [phone] Tameka Muse PA-C [facility] [address] [place] [place] [id number] Laceration of left thumb without foreign body without damage to nail, initial encounter Discharge Disposition: Home or Self Care Social [...] Sign Reading Time Taken Comments Blood Pressure 144/104 10/22/2023 11:43 AM CDT Pulse 61 10/22/2023 11:43 AM CDT Temperature 36.7 ??C (98 ??F) 10/22/2023 11:07 AM CDT Respiratory Rate 16 10/22/2023 11:07 AM CDT Oxygen Saturation 99% 10/22/2023 11:43 AM CDT Inhaled Oxygen Concentration - - Weight 88.6 kg (195 lb 5.2 oz) 10/22/2023 11:07 AM CDT Height 177.8 cm (5' 10) 10/22/2023 11:07 AM CDT Body Mass Index 28.03 10/22/2023 11:07 AM CDT documented in this encounter Discharge Instructions * Discharge Instructions* Tameka Muse PA-C - 10/22/2023 12:45 PM CDT Suture removal in 10-14 days. Keep bandage placed today on for 24 hours. You should change the bandage once daily. I recommend using a thick ointment to cover the wound (Aquaphor, Vaseline, or Bacitracin). These products help keep the wound moisturized to optimize healing and decrease irritation, as well as protect the wound from any bacteria or debris entering the wound. After the wound has started to heal more and fresh skin has formed, always wear sunscreen over the wound to minimize scarring. Return for signs of infection: fevers, foul smelling drainage from the wound (pus), redness that isextending far beyond the edges of the wound Discharge Instructions Laceration (Cut) You were seen today for a laceration (cut). Your provider examined your laceration for any problemssuch a buried foreign body (like glass, a splinter, or gravel), or injury to blood vessels, tendons, and nerves. Your provider may have also rinsed and/or scrubbed your laceration to help prevent an infection. It may not be possible to find all problems with your laceration on the first visit; occasionally foreign bodies or a tendon injury can go undetected. Your laceration may have been closed in one of several ways: No closure: many wounds will heal just fine without closure. Stitches: regular stitches that require removal. Florecita: skin florecita are often used in the scalp/head. Wound adhesive (glue): skin glue can be used for certain lacerations and doesn???t require removal. Wound strips (aka Butterfly bandages or steri-strips): these are bandages that help to close a wound. Absorbable stitches: ???dissolving?? stitches that go away on their own and usually don???t require removal. A small percentage of wounds will develop an infection regardless of how well the wound is cared for. Antibiotics are generally not indicated to prevent an infection so are only given for a small number of high-risk wounds. Some lacerations are too high risk to close, and are left open to heal because closure can increase the likelihood that an infection will develop. Remember that all lacerations, no matter how expertly repaired, will cause scarring. We consider many factors, techniques, and materials, in our efforts to provide the best possible cosmetic outcome. Generally, every Emergency Department visit should have a follow-up clinic visit with either a primary or a specialty clinic/provider. Please follow-up as instructed by your emergency provider today. Return to the Emergency Department right away if: You have more redness, swelling, pain, drainage (pus), a bad smell, or red streaking from your laceration as these symptoms could indicate an infection. You have a fever of 100.4??F or more. You have bleeding that you cannot stop at home. If your cut starts to bleed, hold pressure on the bleeding area with a clean cloth or put pressure over the bandage. If the bleeding does not stop after using constant pressure for 30 minutes, you should return to the Emergency Department for further treatment. An area past the laceration is cool, pale, or blue compared with the other side, or has a slower return of color when squeezed. Your dressing seems too tight or starts to get uncomfortable or painful. For children, signs of a problem might be irritability or restlessness. You have loss of normal function or use of an area, such as being unable to straighten or bend a finger normally. You have a numb area past the laceration. Return to the Emergency Department or see your regular provider if: The laceration starts to come open. You have something coming out of the cut or a feeling that there is something in the laceration. Your wound will not heal, or keeps breaking open. There can always be glass, wood, dirt or other things in any wound. They will not always show up, even on x-rays. If a wound does not heal, this may be why, and it is important to follow-up with your regular provider. Home Care: Take your dressing off in 12-24 hours, or as instructed by your provider, to check your laceration.Remove the dressing sooner if it seems too tight or painful, or if it is getting numb, tingly, or pale past the dressing. Gently wash your laceration 1-2 times daily with clean water and mild soap. It is okay to shower orrun clean water over the laceration, but do not let the laceration soak in water (no swimming). If your laceration was closed with wound adhesive or strips: pat it dry and leave it open to the air. For all other repairs: after you wash your laceration, or at least 2 times a day, apply antibiotic ointment (such as Neosporin?? or Bacitracin??) to the laceration, then cover it with a Band-Aid?? or gauze. Keep the laceration clean. Wear gloves or other protective clothing if you are around dirt. Follow-up for removal: If your wound was closed with florecita or regular stitches, they need to be removed according to theinstructions and timeline specified by your provider today. If your wound was closed with absorbable (???dissolving?? ) sutures, they should fall out, dissolve, or not be visible in about one week. If they are still visible, then they should be removed according to the instructions and timeline specified by your provider today. Scars: To help minimize scarring: Wear sunscreen over the healed laceration when out in the sun. Massage the area regularly once healed. You may apply Vitamin E to the healed wound. Wait. Scars improve in appearance over months and years. If you were given a prescription for medicine here today, be sure to read all of the information (including the package insert) that comes with your prescription. This will include important information about the medicine, its side effects, and any warnings that you need to know about. The pharmacist who fills the prescription can provide more information and answer questions you may have about the medicine. If you have questions or concerns that the pharmacist cannot address, please call or return to the Emergency Department. Remember that you can always come back to the Emergency Department if you are not able to see your regular provider in the amount of time listed above, if you get any new symptoms, or if there is anything that worries you. documented in this encounter Medications at Time of Discharge Medication Sig Dispensed Refills Start Date End Date Escitalopram Oxalate (LEXAPRO PO) Take 10 mg by mouth daily LORazepam (ATIVAN PO) Take 2 mg by mouth as needed documented as of this encounter ED Notes * Cristal Hatfield RN - 10/22/2023 12:55 PM CDT AVS reviewed. * Kusum Loco - 10/22/2023 12:22 PM CDT Emergency Department Vacuum Worker Wound Irrigation Note: 10/22/2023 12:22 PM Wound location: left thumb Irrigation Fluid: Normal Saline Estimated Irrigation Volume (60 mL fluid per cm): 800 mL Pt. Began bleeding significantly while cleaning, pressure applied [facility] notified. Pt. Also experienced some pain, but tolerated irrigation well, [facility] notified about this as well. Kusum Loco * Bhumi Mathew RN - 10/22/2023 11:06 AM CDT Pt states that an oven door lacerated his left thumb. Pt states that the door is spring loaded and snapped down with force on his thumb. Bleeding controlled. * Tameka Muse PA-C - 10/22/2023 11:03 AM CDT Emergency Department Note History of Present Illness Chief Complaint Laceration SARAY Davey is a 33 year old male with last documented tetanus in 2013 presenting today for evaluation of a laceration. Just prior to arrival, the patient was closing an oven door and his left thumbgot caught in it. He sustained a laceration. He denies any significant pain. No numbness or tingling. Independent Historian None Review of External Notes [facility] -- last tdap in 2013. Past Medical History Medical History and Problem List Past Medical History: Diagnosis Date History of kidney stones Psoriasis Renal disease Medications Escitalopram Oxalate (LEXAPRO PO) LORazepam (ATIVAN PO) Surgical History Past Surgical History: Procedure Laterality Date CYSTOSCOPY, URETEROSCOPY, COMBINED Left 12/02/2017 Procedure: COMBINED CYSTOSCOPY, URETEROSCOPY; COMBINED CYSTOSCOPY, LEFT URETEROSCOPY; Surgeon: Abril Reeves MD; Location: OR Physical Exam Patient Vitals for the past 24 hrs: BP Temp Temp src Pulse Resp SpO2 Height Weight 10/22/23 1143 (!) 144/104 -- -- 61 -- 99 % -- -- 10/22/23 1107 (!) 166/118 98 ??F (36.7 ??C) Temporal 70 16 98 % 1.778 m (5' 10) 88.6 kg (195 lb 5.2 oz) Physical Exam BP (!) 144/104 Pulse 61 Temp 98 ??F (36.7 ??C) (Temporal) Resp 16 Ht 1.778 m (5' 10) Wt 88.6 kg (195 lb 5.2 oz) SpO2 99% BMI 28.03 kg/m?? General: Pleasant young male. Examined in room 22. Head: Atraumatic. EENT: Moist mucus membranes. CV: Regular rate. Respiratory: Breathing comfortably on room air. Normal work of breathing. Msk: Full flexion and extension of the left thumb. No numbness distal to the laceration. Skin: On the dorsal aspect of the left thumb is a V-shaped laceration that is approximately 2 centimeters just proximal to the nail fold. No nail involvement. Neuro: Awake, alert, and conversant. Psych: Appropriate mood and affect. Diagnostics Lab Results Labs Ordered and Resulted from Time of ED Arrival to Time of ED Departure - No data to display Imaging Fingers XR, 2-3 views, left Final Result IMPRESSION: Views of the left thumb are negative for acute fracture or dislocation. Normal thumb joint spacing and alignment. SEMAJ BARRAGAN MD SYSTEM ID: [id number] Independent Interpretation X-ray of the left thumb shows no fracture or foreign body. ED Course Medications Administered Medications lidocaine (PF) (XYLOCAINE) 1 % injection (has no administration in time range) Tdap (cjbxzmr-yehahywnvm-vphtn pertussis) (ADACEL) injection 0.5 mL (0.5 mLs Intramuscular $Given 10/22/23 1232) Procedures Laceration Repair Procedure: Laceration Repair Indication: Laceration Consent: Verbal Tetanus status reviewed - last in 2013, updated today Location: Left thumb Length: 2 cm Preparation: Irrigation with Sterile Saline. Anesthesia/Sedation: Digital Block: A digital block was performed with Lidocaine - 1% on the affected digit. Treatment/Exploration: Wound explored, no foreign bodies found Closure: The wound was closed with one layer. Skin/superficial layer was closed with 5 x 5-0 Nylon using Interrupted sutures. Patient Status: The patient tolerated the procedure well: Yes. There were no complications. Discussion of Management None Social Determinants of Health adding to complexity of care None ED Course 1145 performed initial history and exam 1200 Digital block performed 1230 Wound repair performed Medical Decision Making / Diagnosis [facility] Diagnoses: None MIPS None MDM This is a 33 year old male presenting today with a laceration as above. Imaging was indicated to evaluate for fracture. Wound was anesthetized, irrigated, and repaired as above. Tetanus was not up todate, so this was updated today. Given mechanism and location of injury, antibiotics are not indicated. Plan will be for discharge to home with close outpatient follow up. They will have the sutures removed in 10-14 days. They should return for signs of infection such as fevers, expanding redness, or foul-smelling drainage. I discussed the plan with the patient. All questions were answered and they were in agreement the plan. Disposition The patient was discharged. ICD-10 Codes: ICD-10-CM 1. Laceration of left thumb without foreign body without damage to nail, initial encounter S61.012A Tameka Muse PA-C October 22, 2023 [employer] Tameka Muse PA-C 10/22/23 1320 documented in this encounter Plan of Treatment Not on file documented as of this encounter Procedures Procedure Name Priority Date/Time Associated Diagnosis Comments XR FINGER LEFT G/E 2 VIEWS STAT 10/22/2023 11:30 AM CDT documented in this encounter Results * Fingers XR, 2-3 views, left (10/22/2023 11:30 AM CDT) Anatomical Region Laterality Modality Hand, Left Hand Left Computed Radiogr aphy Impressions 10/22/2023 11:40 AM CDT IMPRESSION: Views of the left thumb are negative for acute fracture or dislocation. Normal thumb joint spacing and alignment. SEMAJ BARRAGAN MD SYSTEM ID: [id number] Narrative 10/22/2023 11:40 AM CDT XR FINGER [...] and alignment. SEMAJ BARRAGAN MD SYSTEM ID: [id number] Tameka Muse PA-C IMG DIAGNOSTIC IMAGI NG ORDERABLES documented in this encounter Visit Diagnoses Diagnosis Laceration of left thumb without foreign body without damage to nail, initial encounter documented in this encounter Active and Recently Administered Medications Care Teams Driller Portable Relationship Specialty Start Date End Date No Ref-Primary, Physician PCP - General 10/22/23 documented as of this encounter
== END 2023-11-05 18:28 | disposition home or self-care (01) ==
LOC: ED 18:21
PROVIDERS: Emergency Provider Family Medicine; PCP Internal Medicine
DX: Z48.02 Encounter for removal of sutures (principal)
CPT/HCPCS: 99281; 99283

== ENCOUNTER 2024-02-29 22:01 | Outpatient (REF) | payer BC, SELFPAY ==
--- OUTSIDE RECORDS SUMMARY | 2024-02-29 22:05 | XMS_ITS | Clinical Summary ---
Author Organization [place] Address [address] 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 Gender Identity Not on file Sexual Orientation [...] HIV SCREENING 2004 HEPATITIS C SCREENING 08/06/2007 PHQ-2 (once per calendar year) 2023 COVID-19 Vaccine (3 - season) 2024 08/30/2020, 08/09/2020 INFLUENZA VACCINE (#1) 2024 5, 04/11/2014, 02/17/2013, Additional history exists DTAP/TDAP/TD IMMUNIZATION (8 - Td or Tdap) 10/21/2033 10/22/2023, 09/13/2013, 09/13/2013, Additional history exists RSV VACCINE (1 - 1-dose 75+ series) 2064 HPV IMMUNIZATION Aged Out No longer e ligible based on patient's age to complete this topic MENINGITIS IMMUNIZATION Aged Out No l onger eligible based on patient's age to complete this topic RSV MONOCLONAL ANTIBODY Aged Out No l onger eligible based on patient's age to complete this topic Insurance [facility] * Guarantor: [employer] Account Type Relation to Patient Date of Phone Billing Address Employer Related Other [address] [address] [place] Care Teams Dietary Aide Cook Relationship Specialty Start Date End Date No Ref-Primary, Physician PCP - General 10/22/23
--- OUTSIDE RECORDS SUMMARY | 2024-02-29 22:05 | XMS_ITS | Referral Summary ---
Author Organization [place] Address [address] 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 PLUS [employer]VANTAGE [place] [employer] [place] * Guarantor: [employer] Account Type Relation to Patient Date of Phone Billing Address Employer Related Other [address] [address] * Guarantor: Alissa Ryan Account Type Relation to Patient Date of Phone Billing Address Employer Related Employer 2011 [address] [address] ATTN ACCOUNTS PAYABLE [employer] [id number] [address] Care Teams Construction Safety Consultant Relationship Specialty Start Date End Date No Ref-Primary, Physician PCP - General 10/22/23
--- OUTSIDE RECORDS SUMMARY | 2024-02-29 22:05 | XMS_ITS | Clinical Summary ---
Author Organization [facility] Address [place], [place] [address] Care Team Providers Care Single Needle Tufting Machine Operator Name Role Phone Pcp, No Primary [...] Problem Noted Date Diagnosed Date Psoriasis 06/28/2019 Overview (06/28/2019): Started at age 14. Depression, major 07/06/2008 [...] Comments Blood Pressure 124/78 06/28/2019 2:14 PM TRAINING MGR Pulse 62 06/28/2019 2:14 PM TRAINING MGR Temperature 36.8 ??C (98.3 ??F) 06/28/2019 2:14 PM CS T Respiratory Rate 14 06/16/2019 12:59 PM TRAINING MGR Oxygen Saturation 99% 06/28/2019 2:14 PM TRAINING MGR Inhaled Oxygen Concentration - - Weight 77.6 kg (171 lb) 06/28/2019 2:14 PM TRAINING MGR Height 174 cm (5' 8.5) 06/28/2019 2:14 PM TRAINING MGR Body Mass Index 25.62 06/28/2019 2:14 PM TRAINING MGR Plan of Treatment Health Maintenance Due Date Last Done Comments HIV for age 15-65 2004 Hepatitis C screening for age 18-79 08/06/2007 BMI (ht and wt on same day) for age 18+ 06/28/2020 06/28/2019, 06/16/2019, 06/06/2019, Additional history exists Depression screening for age 12+ 06/28/2020 06/28/2019, 05/31/2019, 05/31/2019 Tetanus booster 09/14/2023 09/13/2013 COVID-19 vaccine series ( season) 2024 Influenza for age 9-49 01/02/2024 02/06/2009 Tdap Completed 09/13/2013 Pneumococcal series for age 6-64 Aged Out No longer eligible based on patient's age to complete this topic Care Teams Single Needle Tufting Machine Operator Relationship Specialty Start Date End Date Pcp, No . PCP - General 05/23/19
[2024-03-03 00:50] LABS: QuantiFERON Mitogen minus NIL 9.76 IU/mL; QuantiFERON NIL 0.24 IU/mL; Quantiferon Plus TB1 minus NIL 0.23 IU/mL (<=0.34); Quantiferon Plus TB2 minus NIL 0.19 IU/mL (<=0.34); Quantiferon TB Gold Plus Negative (Negative)
== END 2024-02-29 22:02 | disposition home or self-care (01) ==
LOC: NPINS 22:01
PROVIDERS: PCP Internal Medicine; Visit Provider Dermatology
DX: L40.0 Psoriasis vulgaris (principal); L40.59 Other psoriatic arthropathy; J02.8 Acute pharyngitis due to other specified organisms; F17.200 Nicotine dependence, unspecified, uncomplicated
CPT/HCPCS: 86480

== ENCOUNTER 2024-04-11 16:50 | Outpatient (CLI) | payer BC, SELFPAY | END 2024-04-11 16:51 | disposition home or self-care (01) | LOC: NFLDREF 04-13 13:30 | PROVIDERS: PCP Internal Medicine; Referring Provider Internal Medicine; Visit Provider Internal Medicine | DX: R30.0 Dysuria (principal); I10 Essential (primary) hypertension | CPT/HCPCS: 87086 ==

== ENCOUNTER 2024-07-26 11:26 | Outpatient (CLI) | payer BC, SELFPAY ==
[2024-07-26 23:06] LABS: Chlamydia DNA Amplified* NOT DETECTED (No Detected); GC DNA Amplified* NOT DETECTED (No Detected)
== END 2024-07-26 11:27 | disposition home or self-care (01) ==
PROVIDERS: PCP Internal Medicine; Visit Provider Nurse Practitioner Family
DX: R30.0 Dysuria (principal); Z12.5 Encounter for screening for malignant neoplasm of prostate; Z11.3 Encounter for screening for infections with a predominantly sexual mode of transmission
CPT/HCPCS: 87491; 87591; G0103

== ENCOUNTER 2024-10-03 13:46 | Outpatient (CLI) | payer BC, SELFPAY | END 2024-10-03 13:47 | disposition home or self-care (01) | LOC: NFLDREF 10-06 07:13 | PROVIDERS: PCP Internal Medicine; Referring Provider Internal Medicine; Visit Provider Internal Medicine | DX: I10 Essential (primary) hypertension (principal); R73.9 Hyperglycemia, unspecified | CPT/HCPCS: 80053; 80061 ==

== ENCOUNTER 2024-10-06 09:32 | Outpatient (CLI) | payer BC, SELFPAY | END 2024-10-06 09:33 | disposition home or self-care (01) | LOC: NFLDREF 10-07 10:14 | PROVIDERS: PCP Internal Medicine; Referring Provider Internal Medicine; Visit Provider Internal Medicine | DX: I10 Essential (primary) hypertension (principal); R73.9 Hyperglycemia, unspecified | CPT/HCPCS: 80053 ==

== ENCOUNTER 2024-11-06 09:55 | Emergency (ER) | payer BC, SELFPAY ==
--- OUTSIDE RECORDS SUMMARY | 2024-11-06 09:57 | XMS_ITS | Referral Summary ---
Author Organization [facility] Address [address] [place] [id number] Care Team Providers Care Asphalt Tamper Name Role Phone None, Md Primary Care Provider Unavailabl e NoneMd Unavailable Unavailable Allergies No known active allergies Medications escitalopram oxalate (LEXAPRO) 20 mg oral tablet Take 1 tablet (20 mg) by mouth once daily. 10/11/2023 Active LORazepam (ATIVAN) 1 mg oral tablet Take 2 tablets (2 mg) by mouth twice a day. Active LORazepam (ATIVAN) 2 mg oral tablet TAKE 1 TABLET BY MOUTH EVERY 12 HOURS FOR ANXIETY 12/23/2023 Active propranoloL (INDERAL) 20 mg oral tablet TAKE 1 TABLET BY MOUTH TWICE DAILY FOR HIGH BLOOD PRESSURE 12/13/2023 Active SKYRIZI 150 mg/mL SubQ Syringe 10/29/2023 Active Tadalafil 5 mg oral tablet Take 1 tablet (5 mg) by mouth once daily. 10/18/2023 Active cetirizine (ZYRTEC) 10 mg oral tablet Take 1 tablet (10 mg) by mouth once daily. 30 tablet 02/08/2024 Active Social History Tobacco Use Types Packs/Day Years Used Date Smoking Tobacco: Every Day Cigarettes Tobacco Cessation:Ready to Q uit: Not Asked; Counseling Given: Not Answered Alcohol Use Standard Drinks/Week Comments Not Currently 0 (1 standard drink = 0.6 oz pur e alcohol) Humiliation, Afraid, Rape, and Kick questionnair e Answer Date Recorded Within the last year, have y ou been afraid of your partner or ex-partner? No 01/19/2024 Within the last year, have y ou been humiliated or emotionally abused in other ways by your partner or ex-partner? No Within the last year, have y ou been kicked, hit, slapped, or otherwise physically hurt by your partner or ex-partner? No 01/19/2024 Within the last year, have y ou been raped or forced to have any kind of sexual activity by your partner or ex-partner? No 01/19/2024 PHQ-2 Answer Date Recorded PHQ2 Total 0 02/08/2024 Sex and Gender Information Value Date Recorded Sex Assigned at Not on file Legal Sex Male 6:08 PM CDT Gender Identity Not on file Sexual Orientation Not on file Last Filed Vital Signs Vital Sign Reading Time Taken Comments Blood Pressure 137/95 02/08/2024 9:54 AM CDT Pulse 66 02/08/2024 9:54 AM CDT Temperature 36.6 C (97.8 F) 02/08/2024 9:53 AM CDT Respiratory Rate 18 02/08/2024 9:53 AM CDT Oxygen Saturation 100% 02/08/2024 9:53 AM CDT Inhaled Oxygen Concentration - - Weight 85.7 kg (189 lb) 02/08/2024 9:53 AM CDT Height 175.3 cm (5' 9) 02/08/2024 9:53 AM CDT Body Mass Index 27.91 02/08/2024 9:53 AM CDT Plan of Treatment Not on file [facility] Care Teams Asphalt Tamper Relationship Specialty Start Date End Date None, PCP - General 01/19/24 NoneMd 01/19/24
--- OUTSIDE RECORDS SUMMARY | 2024-11-06 09:57 | XMS_ITS | Clinical Summary ---
Author Organization [facility] Address [address] [place] 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 Gender Identity Not on file Sexual Orientation Not on file Last Filed Vital Signs Vital Sign Reading Time Taken Comments Blood Pressure 132/106 10/25/2023 10:57 AM CDT Pulse 64 10/25/2023 10:57 AM CDT Temperature 36.7 C (98.1 F) 10/25/2023 10:57 AM CDT Respiratory Rate 20 10/25/2023 10:5 [...] OF HM ORDERS 1989 YEARLY PREVENTIVE VISIT 1992 HEPATITIS B VACCINE (2 of 3 - 3-dose series) 01/25/2002 12/28/2001 HIV SCREENING 2004 HEPATITIS C SCREENING 08/06/2007 PNEUMOCOCCAL VACCINE: PEDIATRICS (0 to 5 YEARS) AND AT-RISK PATIENTS (6 to 49 YEARS) (1 of 2 - PCV) 2008 DIABETES SCREENING 12/28/2020 12/28/2017, 11/05/2017 COVID-19 VACCINE ( - season) 2024 08/30/2020, 08/09/2020 PHQ-2 (once per calendar year) 2024 INFLUENZA VACCINE (#1) 2025 5, 04/11/2014, 02/17/2013, Additional history exists DTAP/TDAP/TD VACCINE (8 - Td or Tdap) 10/21/2033 10/22/2023, 09/13/2013, 09/13/2013, Additional history exists ZOSTER VACCINE (1 of 2) 08/06/2039 HPV VACCINE Aged Out No longer eligi ble based on patient's age to complete this topic MENINGITIS VACCINE Aged Out No longer eligible based on patient's age to complete this topic Procedures Procedure Name Priority Date/Time Associated Diagnosis Comments BASIC METABOLIC PANEL STAT 12/28/2017 11:58 AM CDT from Last 3 Months or Most Recently Relevant to Health Maintenance Results * Basic metabolic panel (BMP) (12/28/2017 11:58 AM CDT) Sodium 142 133 - 144 mmol/L 12/28/2017 12:31 PM CDT [facility] Potassium 4.4 3.4 - 5.3 mmol/L 12/28/2017 12:31 PM CDT [facility] Chloride 109 94 - 109 mmol/L 12/28/2017 12:31 PM CDT [facility] Carbon Dioxide 30 20 - 32 mmol/L 12/28/2017 12:31 PM CDT [facility] Anion Gap 3 3 - 14 mmol/L 12/28/2017 12:31 PM T [facility] Glucose 83 70 - 99 mg/dL 12/28/2017 12:31 PM T [facility] Urea Nitrogen 10 7 - 30 mg/dL 12/28/2017 12:31 PM T [facility] Creatinine 0.92 0.66 - 1.25 mg/dL 12/28/2017 12:31 PM T [facility] GFR Estimate >90 >60 mL/min/1.7 m2 12/28/2017 12:31 PM T [facility] Comment:Non GFR Calc GFR Estimate If Black >90 >60 mL/min/1.7 m2 12/28/2017 12:31 PM [facility] Comment: GFR Calc Calcium 9.1 8.5 - 10.1 mg/dL 12/28/2017 12:31 PM [facility] Blood specimen (specimen) 12/28/2017 11:58 AM CDT 12/28/2017 11:59 AM CDT Sotero Guerin MD LAB - BLOOD ORDERABLES Final Result [facility] [address] [place] [address], [facility] [phone] from Last 3 Months or Most Recently Relevant to Health Maintenance Insurance [facility] * Guarantor: [employer] Account Type Relation to Patient Date of Phone Billing Address Employer Related Other [phone] [address] [place] Care Teams Milk Pasteurizer Relationship Specialty Start Date End Date No Ref-Primary, Physician PCP - General 10/22/23
--- OUTSIDE RECORDS SUMMARY | 2024-11-06 09:57 | XMS_ITS | Clinical Summary ---
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 30 tablet 5 0 Active LORazepam (ATIVAN) 2 mg tabIndications:An xiety state Take 1 tablet by mouth 2 times daily if needed for Anxiety. Do not fill until 07/28/19 60 tablet 0 Active albuterol HFA (PRO-AIR; VENTOLIN; PROVENTIL) 90 mcg/actuation inhalerIndication s:Bronchospasm Inhale 2 Puffs by mouth 4 times daily if needed for Shortness Of Breath. 1 Each 4 Active benzonatate (TESSALON) 100 mg capsuleIndication s:Viral URI with cough Take 1 Capsule (100 mg) by mouth 3 times daily if needed for Cough. 15 Capsule 4 Active Humira,CF, Pen Dcgh-Wp-Inmg HS 80 mg/0.8 mL-40 mg/0.4 mL pnkt 4 Active cetirizine (ZYRTEC) 10 mg tablet Take 1 Tablet by mouth once daily. 4 Active propranoloL (INDERAL) 20 mg tablet take 1 tablet by mouth twice daily for high blood pressure Active Skyrizi 150 mg/mL subcutaneous syringe 4 Active tadalafiL (CIALIS) 5 mg tablet Take 5 mg by mouth once daily. 4 Active valsartan-hydroch lorothiazide, 80-12.5 mg, (DIOVAN HCT) 80-12.5 mg tablet Take 1 Tablet by mouth once daily. 4 Active venlafaxine (EFFEXOR XR) 75 mg cp24 Extended-Release capsule TAKE 1 CAPSULE BY MOUTH DAILY FOR ANXIETY 4 Active escitalopram oxalate (LEXAPRO) 10 mg tablet TAKE 1 TABLET BY MOUTH EVERY DAY FOR ANXIETY 4 Active LORazepam 1 mg tablet Take 2 mg by mouth. Active albuterol HFA (PRO-AIR; VENTOLIN; PROVENTIL) 90 mcg/actuation inhalerIndication s:Acute bronchitis, unspecified organism,Reactive airway disease with acute exacerbation, unspecified asthma severity, unspecified whether persistent (HC) Inhale 2 Puffs by mouth every 4 hours while awake. 1 Each 4 Active cephalexin 500 mg capsuleIndication s:Pain in both testicles,Swellin g of the testicles Take 1 Capsule (500 mg) by mouth four times daily. 20 Capsule 5 Active albuterol HFA (ProAir HFA) 90 mcg/actuation inhalerIndication s:Cough, unspecified type Inhale 2 Puffs by mouth 4 times daily if needed for Shortness Of Breath. 1 Each 5 Active predniSONE 20 mg tabletIndications :Bronchitis Take 2 Tablets (40 mg) by mouth once daily for 5 days. 10 Tablet 5 11/06/19 25 Active Problems Problem Noted Date Diagnosed Date Psoriasis 06/28/2019 Overview (06/28/2019): Started at age 14. Depression, major 07/06/2008 Anxiety state, unspecified 01/18/2008 Encounters Date Type Department Care Team Description 10/31/2024 2:39 PM CDT - 10/31/2024 3:32 PM CDT Emergency [address] [address] Shane Arias MD Cough, unspecified type (Primary Dx); Bronchitis Discharge Disposition: Home Self Care 10/31/2024 Travel 10/27/2024 10:58 PM CDT - 10/28/2024 12:05 AM CDT Emergency [facility] [address] [place] [address] Huey Tierney MD Viral respiratory illness (Primary Dx); Elevated blood pressure reading Discharge Disposition: Home Self Care 10/27/2024 Travel from Last 3 Months Immunizations Immunization Administration Dates Next Due DTP 12/18/1993,12/22/1991,12/01/1990 ,1989 [...] Paying Living Expenses Not on file 05/03/2021 Interpersonal Safety Answer Date Record ed Are you being hit, kicked, p ushed or yelled at (see row info)? 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 Not on file Not on file Obstetrics History Last Filed Vital Signs Vital Sign Reading Time Taken Comments Blood Pressure 153/102 10/31/2024 2:16 PM CDT Pulse 60 10/31/2024 2:16 PM CDT Temperature 36.7 C (98.1 F) 10/31/2024 2:16 PM CDT Respiratory Rate 20 10/31/2024 2:16 PM CDT Oxygen Saturation 98% 10/31/2024 2:16 PM CDT Inhaled Oxygen Concentration - - Weight 82.6 kg (182 lb) 10/31/2024 2:16 PM CDT Height 177.8 cm (5' 10) 10/31/2024 2:16 PM CDT Body Mass Index 26.11 10/31/2024 2:16 PM CDT Plan of Treatment Health Maintenance Due Date Last Done Comments COVID-19 vaccine series (#1) 1994 Hepatitis B series for 19+ ( 2 of 3 - 3-dose series) 01/25/2002 12/28/2001 HIV for age 15-65 2004 Hepatitis C screening for ag e 18-79 08/06/2007 Pneumococcal series for age 6-49 (1 of 2 - PCV) 2008 BMI (ht and wt on same day) for age 18+ 06/28/2020 06/28/2019, 06/16/2019, 06/06/2019, Additional history exists Depression screening for age 12+ 06/28/2020 06/28/2019, 05/31/2019, 05/31/2019 Tetanus booster 09/14/2023 09/13/2013 Lipids for age 35-44 2024 Influenza Vaccine (#1) 2025 5, 04/11/2014, 02/17/2013, Additional history exists Procedures Procedure Name Priority Date/Time Associated Diagnosis Comments XR CHEST 2 VIEWS PA AND LATERAL STAT 10/27/2024 11:51 PM CDT COVID-19 MOLECULAR Today 10/27/2024 11 :14 PM CDT from Last 3 Months Results * XR CHEST 2 VIEWS PA AND LATERAL (10/27/2024 11:51 PM CDT) Anatomical Region Laterality Modality CHEST, THORAX, Lung, HEART Digit al Radiography 10/27/2024 11:5 5 PM CDT Impressions 10/27/2024 11:55 PM CDT 1. No acute cardiopulmonary disease is seen. Dictated by Rogelio Back MD @ 10/27/2024 11:55:17 PM Dictated by: Rogelio Back MD @ 10/27/2024 23:55:30 (Electronically Signed) Narrative 10/27/2024 11:55 PM CDT For Patients: As a result of the Cures Act, medical imaging exams and procedure reports are released immediately into your electronic medical record. You may view this report before your referring provider. If you have questions, please contact your health care provider. INDICATION: Shortness of breath TECHNIQUE: Chest radiograph 2 views COMPARISON: 04/21/2024 FINDINGS: Mediastinum: The mediastinum is normal in appearance. The heart silhouette is normal in size and morphology. Lung: Small punctate granulomas are present in the mid lung zones bilaterally and in the right apex. No sign of pleural effusion seen. No pneumothorax is identified. Bone and Soft tissue: Unremarkable for age. Procedure Note Rogelio Back MD - 10/27/2024 For Patients: As a result of the Cures Act, medical imagingexams and procedure reports are released immediately into your electronicmedical record. You may view this report before your referring provider.If you have questions, please contact your health care provider. INDICATION: Shortness of breath TECHNIQUE: Chest radiograph 2 views COMPARISON: 04/21/2024 FINDINGS: Mediastinum: The mediastinum is normal in appearance. The heart silhouetteis normal in size and morphology. Lung: Small punctate granulomas are present in the mid lung zonesbilaterally and in the right apex. No sign of pleural effusion seen. Nopneumothorax is identified. Bone and Soft tissue: Unremarkable for age. IMPRESSION: 1. No acute cardiopulmonary disease is seen. Dictated by Rogelio Back MD @ 10/27/2024 11:55:17 PM Dictated by: Rogelio Back MD @ 10/27/2024 23:55:30 (Electronically Signed) us Huey Tierney MD GENERAL IMAGING Final Result * COVID-19 MOLECULAR (10/27/2024 11:14 PM CDT) COVID 19 [facility] MOLECULAR Not detected Not detected 10/27/2024 11:46 PM CDT [facility] 10/27/2024 11:46 PM CDT [facility] Comment:Specimen submitted t o [facility] for testing. 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 PCP - General 05/23/19
--- OUTSIDE RECORDS SUMMARY | 2024-11-06 09:57 | XMS_ITS | Clinical Summary ---
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 Name Role Phone None, Md Primary Care [...] 02/08/2024 9:53 AM CDT Plan of Treatment Health Maintenance Due Date Last Done Comments Diabetes Screening 1989 Hepatitis C Screening 1989 Lipid Screening 1989 Pneumococcal Vaccine (1 of 2 - PCV) 2008 COVID-19 Vaccine (3 - season) 2024 08/30/2020, 08/09/2020 Influenza Vaccine (#1) 2025 5, 04/11/2014, 02/17/2013, Additional history exists Anxiety Screening (BEATRIZ-2) 02/07/2025 02/08/2024, 02/2024 Depression Assessment (PHQ-2) 02/07/2025 02/08/2024, 01/11/2024 Adult Tetanus Booster 10/21/2033 10/22/2023 , 10/22/2023, 09/13/2013 RSV Vaccines (1 - 1-dose 75+ series) 2064 Meningococcal B Vaccine Aged Out No l onger eligible based on patient's age to complete this topic Insurance [facility] PMAP/MNCARE [facility] PMAP/MNCARE Care Teams Byproducts Extractor Relationship Specialty Start Date End Date Md Deepak PCP - General 01/19/24 Md Deepak 01/19/24
[2024-11-06 10:21] VITALS: BP 166/112; PULSE 67; RESP 20; TEMP 36.2; O2SAT 97; BMI 26.1
--- NOTE | 2024-11-06 10:39 | ED.GENADULT ---
HPI - General Adult General Chief complaint: Unspecified Complaint, Adult Stated complaint: feels very out of it Time Seen by Provider: 11/06/24 10:29 Source: patient Mode of arrival: ambulatory Limitations: no limitations History of Present Illness HPI narrative: 34-year-old male presenting to the ER today not feeling well. He states he woke up this morning and felt ?out of it?. States that he feels like he is having an out of body experience. Denies vertiginous symptoms. Denies chest pain or shortness of breath. Complains of diffuse abdominal discomfort, but not ?pain?. He states that he feels that he is probably constipated but had 2 bowel movements this morning. States that he took 1 and half tablets of lorazepam this morning because he thought that perhaps this was anxiety but it did not change the way he was feeling. He denies headache, blurry vision or ringing in his ears. He denies nausea or vomiting. He denies feeling dizzy but he states that he feels kind of ?lightheaded?. He denies feeling like he is going to fall when he is walking. He denies feeling off balance. He denies any urinary symptoms such as increased frequency, urgency or dysuria. He denies blood in his stool or urine. He denies tingling in his extremities. He denies weakness of his extremities. He denies confusion or word-finding difficulty. Patient just states that something is not right. He does state that he drinks approximately 7 sodas per day, does not drink water ever. States that he was tested for diabetes approximately 2 weeks ago and this was borderline. Does state that he started escitalopram 2 days ago. Was on this medication in the past and never had any issues with it. Related Data Previous Rx's ?Medication ?Instructions ?Recorded risankizumab-rzaa 150 mg/mL 150 mg subcut Q12W #1 mL 06/17/23 subcutaneous syringe (Skyrizi) tadalafil 5 mg tablet (Cialis) 5 mg PO QDAY #30 tabs 10/11/23 propranolol 20 mg tablet 20 mg PO BID Hypertension #180 tabs 06/14/24 escitalopram oxalate 10 mg tablet 10 mg PO QDAY #90 tabs 10/05/24 (Lexapro) nicotine 21 mg/24 hr daily 1 patch transdermal Q24H #28 ea 10/05/24 transdermal patch lorazepam 2 mg tablet 2 mg PO Q12H #60 tabs 11/01/24 Allergies Allergy/AdvReac Type Severity Reaction Status Date / Time No Known Drug Allergies Allergy Verified 11/06/24 10:27 Review of Systems Status of ROS: Reports: 10 or more systems reviewed and unremarkable except as noted in History and below [facility] Medical History Blood glucose elevated ?R73.9 - Hyperglycemia, unspecified (ICD-10) Tobacco use ?Z72.0 - Tobacco use (ICD-10) Erectile dysfunction ?N52.9 - Male erectile dysfunction, unspecified (ICD-10) Depression ?F32.A - Depression, unspecified (ICD-10) Subcutaneous nodule ?R22.9 - Localized swelling, mass and lump, unspecified (ICD-10) Lump on face ?R22.0 - Localized swelling, mass and lump, head (ICD-10) Flank pain ?R10.9 - Unspecified abdominal pain (ICD-10) Acute viral pharyngitis ?J02.9 - Acute pharyngitis, unspecified (ICD-10) Acute gastritis ?K29.00 - Acute gastritis without bleeding (ICD-10) Abdominal pain ?R10.9 - Unspecified abdominal pain (ICD-10) Social History What is your current living situation?: I presently have a place to live Problems where you live details: None In the past 12 months, utilities in danger of being shut off: no In past 12 months, lack of transportation kept you from medical appts, meetings, work, or getting things needed for daily living: no In the past 12 mos, have been you worried that your food would run out before you had money to buy more?: sometimes true In the past 12 mos, the food you bought just didn't last and you didn't have money to buy more?: never true Smoking Status: Current every day smoker What tobacco products do you use: cigarettes Smoking packs per day: 1 Smoking cigarettes per day: 20.0 Do you use any of these nicotine containing products: None Second hand tobacco smoke exposure: Yes How often do you have a drink containing alcohol: monthly or less How many standard drinks containing alcohol do you have on a typical day: 1 or 2 How often do you have six or more drinks on one occasion: Never AUDIT-C Alcohol total score: 1 Non-prescribed substance use: denies use How often does anyone, including family, friends and others, physically hurt you: never How often does anyone, including family, friends and others, insult or talk down to you: rarely How often does anyone, including family, friends and others, threaten you with harm: never How often does anyone, including family, friends and others, scream or curse at you: rarely service: No Health Related Social Needs: food insecurity (Z59.41) and Other personal risk factors, not elsewhere classified (Z91.89) Exam Narrative: Exam Narrative: Well-nourished well-developed patient in no acute distress. Alert and oriented. Answers questions appropriately. Mood and affect are appropriate. Thoughts are goal oriented and rational. No tangential or magical thinking noted. Patient speaks in full sentences without needing to catch his breath. HEENT: Normocephalic atraumatic. Pupils are equally round reactive to light. Extraocular muscles are intact. Conjunctivae are moist without any icterus noted. Moist mucous membranes. Posterior pharynx is normal. Neck is soft without any lymphadenopathy or thyromegaly. No masses are appreciated. Cardiovascular: Heart is regular rate and rhythm S1 and S2 are present without any murmurs. Occasional aberrant beats. Lungs: Clear to auscultation bilaterally no wheezes rhonchi or rales are appreciated. Patient takes deep breaths without any discomfort. Abdomen: Soft and nontender nondistended with normal bowel sounds. No guarding or rebound. No masses or organomegaly appreciated. Extremities: Bilateral lower extremities are without edema. Normal DP and PT pulses. Skin: Well perfused without any obvious rashes. Strength is 5/5 of the upper and lower extremities. Reflexes are 2+ and symmetric at the knees. Romberg sign is negative. Cranial nerves 3-12 are normal. [id number] is normal. [id number]-[id number] is normal. There is no nystagmus either horizontally or vertically. Gait is normal. Const: Vital Signs, click to edit/add: Vital Signs - 24 hr 11/06/24 10:21 Temperature 97.1 F L Pulse Rate [Right Pulse Oximeter] 67 Respiratory Rate 20 Blood Pressure [Ri ght Upper Arm] 166/112 H Pulse Oximetry 97 Oxygen Delivery Me thod Room Air Course Course ED Course: IV is established in 1 L of normal saline is ordered. EKG, read by me, shows normal sinus rhythm with a pulse of 62. He has normal QRS, QTC and IN intervals. Lab work is unremarkable with mild abnormalities. Patient felt better after fluid hydration. Vital Signs Vital signs: Initial Vital Signs Temperature 97.1 F L 11/06/24 10:21 Temperature Source Temporal Artery Scan 11/06/24 10:21 Pulse Rate 67 11/06/24 10:21 Pulse Rhythm Regular 11/06/24 10:21 Pulse Strength 3+ Normal 11/06/24 10:21 Respiratory Rate 20 11/06/24 10:21 Blood Pressure 166/112 H 11/06/24 10:21 Blood Pressure Mean 130 H 11/06/24 10:21 Blood Pressure Position Sitting 11/06/24 10:21 Pulse Oximetry 97 11/06/24 10:21 Oxygen Delivery Method Room Air 11/06/24 10:21 Vital Signs Temperature 97.1 F L 11/06/24 10:21 Pulse Rate 67 11/06/24 10:21 Respiratory Rate 20 11/06/24 10:21 Blood Pressure 166/112 H 11/06/24 10:21 Pulse Oximetry 97 11/06/24 10:21 Oxygen Delivery Method Room Air 11/06/24 10:21 Temperature 97.1 F L 11/06/24 10:21 Pulse Rate 67 11/06/24 10:21 Respiratory Rate 20 11/06/24 10:21 Blood Pressure 166/112 H 11/06/24 10:21 Pulse Oximetry 97 11/06/24 10:21 Oxygen Delivery Method Room Air 11/06/24 10:21 Medical Decision Making MDM Narrative Medical decision making narrative: 34-year-old male feeling unwell, unclear etiology. Feeling better after fluid hydration. Patient tells me that he drinks about 1 glass of water per month. We discussed that dehydration could certainly be a cause of his symptoms. We discussed following up with primary care or return to the ED if this happens again. Lab Data Lab results reviewed: Yes I reviewed the patient's lab results Labs: Lab Results 11/06/24 11/06/24 Range/Units 11:06 11:28 WBC 10.23 (4.50-11.00) K/uL RBC 5.27 (4.30-5.90) m/uL Hgb 15.5 (13.5-17.5) gm/dL Hct 43.5 (37.0-53.0) % MCV 83 (80-100) fL MCH 29 (26-34) pg MCHC 36 (32-36) gm/dL RDW Coeff of Gavino 11.6 (11.5-15.5) % Plt Count 202 (140-440) K/uL Neut % (Auto) 66.9 (42.0-72.0) % Lymph % (Auto) 21.3 (20-44) % [place] % (Auto) 9.5 (0.0-11.0) % Eos % (Auto) 1.5 (0.0-7.0) % Baso % (Auto) 0.3 (0.0-3.0) % Neut # (Auto) 6.85 (1.7-7.0) K/uL Lymph # (Auto) 2.18 (0.90-2.90) K/uL [place] # (Auto) 1.00 H (0.00-0.90) K/UL Eos # (Auto) 0.15 (0.00-0.50) K/uL Baso # (Auto) 0.03 (0.00-0.30) K/uL Abs Immat Gran (auto) 0.05 (0.00-0.30) K/uL Imm/Tot Granulo (auto) 0.5 % Sodium 143 (135-149) mmol/L Potassium 3.6 (3.6-5.1) mmol/L Chloride 104 (96-114) mmol/L Carbon Dioxide 33 H (20-32) mmol/L Anion Gap 6 L (7-15) mEq/L BUN 10 (5-24) mg/dL Creatinine 1.0 (0.5-1.5) mg/dL Estimated Creat Clear 106.46 Estimated GFR 101 ml/min Glucose 112 (60-115) mg/dL Lactate 1.4 (0.5-1.9) mmol/L Calcium 9.4 (8.4-10.6) mg/dL Total Bilirubin 2.7 H (0.1-1.5) mg/dL Direct Bilirubin 0.0 (0.0-0.5) mg/dL AST 39 H (12-35) U/L ALT 63 H (4-50) U/L Alkaline Phosphatase 89 (40-150) U/L Troponin I < 0.01 (0.01-0.04) ng/mL C-Reactive Protein 2.5 H (0.5-1.0) mg/dL Total Protein 7.3 (6.0-8.3) g/dL Albumin 4.4 (3.3-5.0) g/dL Lipase 74 (23-300) U/L TSH 0.967 (0.270-4.20) uIU/mL Urine Color Light yellow (Yellow) Urine Appearance Clear (Clear) Urine pH 6.5 (5.0-8.5) Ur Specific [place] 1.010 (1.000-1.030) Urine Protein Negative (Negative) Urine Glucose (UA) Negative (Negative) Urine Ketones Negative (Negative) Urine Blood Negative (Negative) Urine Nitrite Negative (Negative) Urine Bilirubin Negative (Negative) Urine Urobilinogen 0.2 (0.2-1.0) Ur Leukocyte Esterase Negative (Negative) Urine RBC 0-2 (0-2) Urine WBC 0-2 (0-5) Ur Squamous Epith Cells None (None-Few) Urine Bacteria None (None) Salicylates < 1.0 L (1.0-10) mg/dL Urine Opiates Screen Negative (Negative) Ur Oxycodone Screen Negative (Negative) Urine Methadone Screen Negative (Negative) Acetaminophen < 10.0 (10.0-30.0) ug/mL Ur Barbiturates Screen Negative (Negative) U Tricyclic Antidepress Negative (Negative) Ur Phencyclidine Scrn Negative (Negative) Ur Amphetamines Screen Negative (Negative) U Methamphetamines Scrn Negative (Negative) U Benzodiazepines Scrn POSITIVE A (Negative) Urine Cocaine Screen Negative (Negative) U Marijuana (THC) Screen Negative (Negative) Ur Drug Screen Comment See Note Ethyl Alcohol < 0.01 (0.01-0.03) % SARS-CoV-2 (PCR) Negative SARS-CoV-2 (Negative) Monoscreen Negative (Negative) Influenza Type A (PCR) Negative PCR FLU A (Negative) Influenza Type B (PCR) Negative PCR FLU B (Negative) RSV (PCR) Negative PCR RSV (Negative) ECG Data Attestation: I personally reviewed and interpreted this ECG as follows: Discharge Plan Discharge Clinical Impression: Feeling unwell Patient Disposition: Home, Self-Care Condition: Improved Additional Instructions: Increase daily water intake. Follow-up with primary care as needed. Prescriptions: No Action Skyrizi 150 mg/mL syringe 150 mg subcut Q12W Qty: 1 2RF tadalafil [Cialis] 5 mg tablet 5 mg PO QDAY Qty: 30 3RF nicotine 21 mg/24 hr patch 24 hour 1 patch transdermal Q24H Qty: 28 3RF escitalopram oxalate [Lexapro] 10 mg tablet 10 mg PO QDAY Qty: 90 3RF propranolol 20 mg tablet 20 mg PO BID Qty: 180 0RF lorazepam 2 mg tablet 2 mg PO Q12H Qty: 60 0RF Follow Up/Referrals: Randy Killian MD [Primary Care Provider, Internal Medicine] [facility]
[2024-11-06 11:13] LABS: Lactate* 1.4 mmol/L (0.5-1.9)
[2024-11-06 11:17] LABS: Hematocrit 43.5 % (37.0-53.0); Hemoglobin* 15.5 gm/dL (13.5-17.5); Immature Granulocytes Abs Auto 0.05 K/uL (0.00-0.30); Immature Granulocytes Pct Auto 0.5 %; Lymphocytes Absolute Auto 2.18 K/uL (0.90-2.90); Mean Corpuscular HGB Conc 36 gm/dL (32-36); Mean Corpuscular Hemoglobin 29 pg (26-34); Mean Corpuscular Volume 83 fL (80-100); RDW Coefficient of Variation % 11.6 % (11.5-15.5); Red Blood Count 5.27 m/uL (4.30-5.90); White Blood Count* 10.23 K/uL (4.50-11.00)
[2024-11-06 11:18] LABS: Slide Review Reflex No
[2024-11-06 11:29] LABS: Mono Screen* Negative (Negative)
[2024-11-06 11:54] LABS: Albumin* 4.4 g/dL (3.3-5.0); Chloride* 104 mmol/L (96-114)
[2024-11-06 11:54] LABS: Appearance Urine Clear (Clear)
[2024-11-06 11:55] LABS: Potassium* 3.6 mmol/L (3.6-5.1); Sodium* 143 mmol/L (135-149)
[2024-11-06 11:57] LABS: Alanine Aminotransferase* 63 U/L (4-50); Alkaline Phosphatase* 89 U/L (40-150); Anion Gap 6 mEq/L (7-15); Aspartate Amino Transferase* 39 U/L (12-35); Bilirubin Direct* 0.0 mg/dL (0.0-0.5); Bilirubin Total* 2.7 mg/dL (0.1-1.5); Blood Urea Nitrogen* 10 mg/dL (5-24); Carbon Dioxide* 33 mmol/L (20-32); Creatinine* 1.0 mg/dL (0.5-1.5); Est. Creatinine Clearance* 106.46; Estimated Glomerular Filt Rate 101 ml/min; PCR FLU A Negative PCR FLU A (Negative); PCR FLU B Negative PCR FLU B (Negative); PCR RSV Negative PCR RSV (Negative); SARS PCR* Negative SARS-CoV-2 (Negative); Total Protein* 7.3 g/dL (6.0-8.3)
[2024-11-06 11:58] LABS: Cannabinoid Screen Urine Negative (Negative)
[2024-11-06 11:58] LABS: Calcium* 9.4 mg/dL (8.4-10.6); Glucose* 112 mg/dL (60-115)
[2024-11-06 11:59] LABS: Methamphetamines Screen Urine Negative (Negative); Tricyclic Antidepressant Urine Negative (Negative)
[2024-11-06 12:09] LABS: Acetaminophen* < 10.0 ug/mL (10.0-30.0); Salicylate* < 1.0 mg/dL (1.0-10)
[2024-11-06 12:10] LABS: Ethanol* < 0.01 % (0.01-0.03)
== END 2024-11-06 13:05 | disposition home or self-care (01) ==
PROVIDERS: Emergency Provider Family Medicine; PCP Internal Medicine
DX: R69 Illness, unspecified (principal); R42 Dizziness and giddiness; F17.210 Nicotine dependence, cigarettes, uncomplicated; Z79.899 Other long term (current) drug therapy
CPT/HCPCS: 36415; 80048; 80076; 80143; 80179; 80306; 81001; 82077; 83605; 83690; 84443; 84484; 85025; 86140; 86308; 87086; 87631; 93005; 99284